=== PATIENT | male | born 1985 | race Caucasian/White ===

== ENCOUNTER 2020-10-22 09:50 | Outpatient (CLI) | payer SELFPAY ==
--- NOTE | 2020-10-22 19:10 | ONC CON_ITS ---
Dr. Xiong New Patient Note Patient: Joseph Morales Unit #: [id number]: 1985 Dicatated By: Yan Xiong M.D.Date of Visit: Oct 22, 2020 Onc MED New Patient/Consult Referring Physician: Dr. Bladimir Arnett M.D. Chief Complaint: Left axillary adenopathy. History of Present Illness: This is a 35-year-old man with history of stage IB melanoma of the left upper back. He is seen because of left axillary lymphadenopathy. He was diagnosed with superficial spreading melanoma of the left upper back by punch biopsy in April 2014. He underwent wide excision on 04/24/2014. Pathology showed malignant melanoma, Bruce level IV, with Brezlow depth 1.05 mm. There was no associated ulceration. The mitotic rate was 1.0/mm???. Angiolymphatic invasion was not identified. There was a brisk lymphocytic host response. The margins were free. It was pathologic stage 2a. He apparently was recommended to have lymph node sampling, which she declined. It sounds as though he may have had a staging PET/CT, that record is not available. In any case, he did not qualify for adjuvant therapy, and he was followed expectantly. On 10/12/2020 he was seen at Dr. Arnett's office with a 1-week history of an enlarged left axillary lymph node. He also complained of weakness/fatigue for 1 month. His blood pressure was elevated. His CBC showed elevated hemoglobin/hematocrit at 18.4 g and 53.2% with white blood cell count normal at 7500 and platelet count normal at 216,000. Sed rate was normal at 2 mm/h with C-reactive protein normal at 1.6 mg/L. Comprehensive metabolic profile was unrevealing. Renal function was normal with BUN 11 and creatinine 0.94 mg/dL. The bilirubin and liver enzymes were normal. He began treatment with lisinopril and prednisone. At his follow-up visit on 10/18/2010 there was no improvement in the adenopathy. He is seen now for further management. He complains that he still feels real weak some days. He still has normal activity, but he has to push himself. He has had pretty good appetite, but he has had a weight loss in the range of 20 pounds. He has not had fever. Couple weeks ago he was having cold sweats, but that has resolved. He has not had sore mouth or throat and he has not had difficulty swallowing. He has no shortness of breath, cough, or chest pain. He has had some heartburn at night. He was having loose stools for 1 to 2 weeks, but he has had mild constipation since he started the prednisone. He has no complaints. He says his hands sometimes ache and he has had some back pain. He does not complain of headache. He has had some dizziness with his blood pressure medication. He has had some numbness/tingling in his hands, which comes and goes. He has no other focal neurologic symptoms. Past Medical History: His medical history is significant for hypertension and a history of melanoma. Past Surgical History: He underewent wide excision of melanoma from the left upper back on 04/24/2014. His other surgical/procedural history includes open reduction for left clavicle fracture, right hand surgery for staff cellulitis, and a tendon repair on the left hand. Medications: Lisinopril (10 mg) Tablet Oral daily Allergies: No Known Allergies. Social History: Mr. Morales is . He has history of smoking 1 pack of cigarettes daily for 15 years. He drinks a sixpack of beer daily. Family History: Both parents are living and in good health. He has one half-brother who also is in good health. His grandmother had breast cancer and his grandfather had lung cancer. Review Of Symptoms: Constitutional - He has had some fatigue. He still has normal activity, but he has to push himself. He has pretty good appetite. His weight is down 20 pounds. He has not had fever. A couple of weeks ago he was having some cold sweats at night, but that resolved. ECOG score 0, Eyes - No change in vision, ENMT - No hearing loss or tinnitus. No sinus congestion/drainage. No mouth sores. No sore throat or difficulty swallowing, Hematologic/Lymphatic - No abnormal bruising or bleeding, Respiratory - No shortness of breath. No cough. No pleuritic pain or hemoptysis, Cardiovascular - No angina pain. No palpitations, Gastrointestinal - No nausea or vomiting. He sometimes has heartburn at night. He has been having loose stools for a week or 2, but he developed some constipation after he started taking prednisone. He has not been aware of any blood in the stool, Genitourinary (M) - No dysuria or hematuria. No urinary frequency. No urgency or incontinence, Musculoskeletal - He has a little aching in his hands and he has been having some back pain, Integumentary - He has had no new skin lesions, Neurologic - No headache. He has had some dizziness with his blood pressure. He has some numbness/tingling in his hands, but it comes and goes. No other focal neurologic symptoms, Psychiatric - No anxiety or depression. No insomnia. Vital Signs: Performed on Oct 22, 2020 11:35: 0, 3, 28.18, 2.02 sq.m, 69 in, 98 %, 65 /min, 18 /min, 135/80 mm(hg), 98.3 F (LOW), and 190.8 lbs (HIGH). Physical Examination: Constitutional - He appears to be in good general health, Eyes - Sclerae nonicteric. Conjunctivae clear, ENMT - No lesions noted in the oral cavity, Neck - No mass or thyromegaly, Hematologic/Lymphatic - No cervical or clavicular adenopathy. There has a palpable node in the left axilla which measures 2 to 3 cm, Respiratory - Lungs are clear with good air movement bilaterally, Cardiovascular - Heart rhythm is regular. There is no murmur, gallop, or rub noted, Abdomen - Soft and non-tender. Liver and spleen are not enlarged. There is no abdominal mass or ascites noted and there is no inguinal adenopathy, Back/Spine - No spine or CVA tenderness noted, Extremities - No edema, Integumentary - There is no evidence of local recurrence at the excision site in the left mid to upper back and there are no suspicious skin lesions noted. There is an obvious sebaceous cyst in the upper back, pretty much in the midline, Neurologic - No focal neurologic deficits noted. Problem List: 1. Malignant melanoma involving the left upper back, by clinical evaluation stage IB (pT2a, N0, M0). He underwent wide excision on 04/24/2014. He declined lymph node sampling. 2. New onset of left axillary lymphadenopathy, highly suspicious for recurrent melanoma. 3. Elevated hemoglobin/hematocrit. This is almost certainly some form of secondary polycythemia, most likely decreased plasma volume, i.e. stress erythrocytosis . Some component may be related to smoking, though by clinical evaluation he does not appear to any overt associated lung disease. 4. Hypertension. Problems Addressed with this Encounter and Plan: 1. Patient with malignant melanoma involving the left upper back, by clinical evaluation stage IB (pT2a, N0, M0). He underwent wide excision on 04/24/2014. He declined lymph node sampling. He has been followed expectantly. He presents now with new onset of left axillary lymphadenopathy. I discussed the fact that this is highly suspicious for recurrent melanoma, but that there are now treatments available which are potentially much more effective than what was available in 2014. First further evaluation, would first like to get a staging PET/CT, mainly to see if there are other obvious areas of involvement. Depending on the findings, we can then proceed with either an ultrasound directed needle biopsy or an excisional biopsy. His further treatment would obviously be dependent on the pathology findings. His management is going to be complicated by the fact that he is uninsured. I am hoping that we can get the PET/CT covered through our patient assistance fund. 2. He has mildly elevated hemoglobin/hematocrit levels. As noted, the probability is very high that this is some sort of secondary polycythemia. At least for the time being I will just be monitoring his blood counts. Signed By: Yan Xiong M.D. <<Signature on File>>
== END 2020-10-22 09:51 | disposition home or self-care (01) ==
LOC: ONCMED 09:57
PROVIDERS: PCP Family Medicine; Visit Provider Internal Medicine Medical Oncology
DX: C43.59 Malignant melanoma of other part of trunk (principal); C77.8 Secondary and unspecified malignant neoplasm of lymph nodes of multiple regions; D75.1 Secondary polycythemia; I10 Essential (primary) hypertension; Z79.899 Other long term (current) drug therapy
CPT/HCPCS: 99203

== ENCOUNTER → 2020-11-02 12:37 | Outpatient (BNVA) | payer OTHER, SELFPAY | PROVIDERS: PCP Family Medicine; Referring Provider Internal Medicine Medical Oncology; Visit Provider Surgery | DX: Z11.52 Encounter for screening for COVID-19 (principal); R59.1 Generalized enlarged lymph nodes; Z85.820 Personal history of malignant melanoma of skin; R59.0 Localized enlarged lymph nodes; C43.9 Malignant melanoma of skin, unspecified | CPT/HCPCS: 87635 ==

== ENCOUNTER 2020-11-08 05:40 | Day surgery (SDC) | payer SELFPAY ==
[2020-11-07 11:09] VITALS: BMI 27.8
--- NOTE | 2020-11-08 06:34 | ANES.PREANE2 ---
Pre-Anesthetic Assessment Pre-Anesthetic Assessment: Height/Weight: Height 1.75 m Weight 85.729 kg Preop Diagnosis: Left axillary lymphadenopathy Proposed Procedure: Operation Date: 11/08/20 07:00 Proposed Procedures p Left AXILLA LYMPH NODE BIOPSY 00216 Z85.820(Left) - Luke Bean MD Familial anesthetic complications: None Was Beta Isaiah taken within 24 hours: N/A Was Clonidine taken within 24 hours: N/A Last intake: Intake Last Liquid Date 11/07/20 Last Liquid Time 21:00 Last Solid Date 11/07/20 Last Solid Time 21:00 Social: Social History: Alcohol and Tobacco Comment: 3-6 beers a day Exam: Pre-Anes Outpt Exam: alert, oriented x 3, clear to auscultation bilaterally and regular rate & rhythm Airway: MP: 3 Dentition: Other (1 missing) CV/HEM: CV/HEM: HTN Anesthetic Plan: ASA status: 3 Anesthesia: MAC Risk of > 500 ml blood loss (7ml/kg in children): No PFSH Anesthesia PFSH: Medical History (Updated 11/02/20 @ 12:30 by Luke Bean MD) History of melanoma left side mid back Surgical History (Updated 11/02/20 @ 12:30 by Luke Bean MD) Hx of hand surgery right and left Hx of shoulder surgery Social History (Updated 11/02/20 @ 12:19 by Sarah Centeno LPN) Smoking and tobacco status: current every day smoker (1pk per day) cigarettes Packs smoked per day: 1 Alcohol intake: current Alcohol intake frequency: 3 or more drinks per day Alcohol type: beer Data Anesthesia Cardiac Studies: No Data to Display
[2020-11-08 06:39] VITALS: BP 135/90; PULSE 74; RESP 18; TEMP 36.8; O2SAT 98
[2020-11-08] MEDS: sodium chloride 0.9% 1,000 ML 30 ML IV (06:45)
--- NOTE | 2020-11-08 06:50 | W.PM.OPSUD ---
Surgery/Procedure H&P Update DATE OF PROCEDURE: November 08, 2020 DATE H&P PERFORMED: 11/02/20 H&P UPDATE INFORMATION: I have reviewed H&P completed within last 30 days, I have examined patient prior to procedure and No changes to prior documentation PREOP DIAGNOSIS: Left axillary lymphadenopathy PLANNED PROCEDURE: Operation Date: 11/08/20 07:00 Proposed Procedures p Left AXILLA LYMPH NODE BIOPSY 78958 Z85.820(Left) - Luke Bean MD
[2020-11-08] MEDS: lidocaine 1% INJ 20 mL 15 ML SUBCUT (07:38)
[2020-11-08 07:43] VITALS: BP 147/57; PULSE 68; RESP 13; TEMP 36.1; O2SAT 96
--- NOTE | 2020-11-08 07:47 | PM.OP ---
Operative Report Date of procedure: November 08, 2020 Pre-op Diagnosis: 1. History of melanoma on the back status post excision many years ago 2. Enlarged left axilla lymph node Post-op diagnosis: same Procedure Done: Left axillary lymph node biopsy Specimens removed/disposition: Lymph node left axilla Surgeon: Luke Bean Anesthesia: MAC Condition: stable Disposition: PACU Procedure: The patient was taken the operating room and placed under MAC after IV antibiotic had been administered. The left axilla was prepped and draped in sterile manner. 1% lidocaine with 0.5% Marcaine was infiltrated around the palpable left axillary lymph node. Using a 15 blade a 4 cm incision was made, subcutaneous tissue and clavipectoral fascia was divided using electrocautery and the palpable lymph node was identified and dissected free from the surrounding subcutaneous tissue. The vascular pedicle was suture ligated with 3-0 Vicryl suture and the specimen was sent in saline for lymph node prep. The wound was irrigated saline, hemostasis ensured, subcutaneous tissues approximated using interrupted 3-0 Vicryl suture and skin was closed using running subcuticular 4-0 Monocryl suture and surgical glue. The patient was transferred to recovery room in stable condition.
[2020-11-08 07:50] VITALS: BP 148/58; PULSE 65; RESP 19; O2SAT 97
[2020-11-08 07:55] VITALS: BP 189/85; PULSE 70; RESP 17; O2SAT 96
[2020-11-08 08:00] VITALS: BP 188/81; PULSE 65; RESP 13; TEMP 36.4; O2SAT 96
[2020-11-08] MEDS: HYDROcodone-acetaminophen 5-325 mg Tablet 1 TAB PO (08:38)
[2020-11-08 08:45] VITALS: BP 141/87; PULSE 66; RESP 18; TEMP 36.6; O2SAT 96
--- NOTE | 2020-11-08 15:14 | ANE.PACU2 ---
Inpatient post-anesthesia follow up: Airway intact: Yes Vital signs: Temperature 97.9 F Pulse Rate 66 Respiratory Rate 18 Blood Pressure 141/87 Pulse Oximetry 96 Oxygen Delivery Me thod Room Air Oxygen Flow Rate 8 Fraction of Inspir ed Oxygen Hydration adequate: Yes Nausea and vomiting: No Pain level: 3 Mental status: Baseline
[2020-11-12 05:47] LABS: Miscellaneous Test See Scanned Lab Rpt
[2020-11-14 05:41] LABS: Miscellaneous Test See Scanned Lab Rpt
== END 2020-11-08 08:50 | disposition home or self-care (01) ==
PROVIDERS: PCP Family Medicine; Visit Provider Surgery
PROC: (CPT 38500; principal; 2020-11-08 07:00)
DX: R59.9 Enlarged lymph nodes, unspecified (principal); Z85.820 Personal history of malignant melanoma of skin; I10 Essential (primary) hypertension; F17.210 Nicotine dependence, cigarettes, uncomplicated
CPT/HCPCS: 38500; 81210; 87015; 87102; 87116; 87206; 87801; 88184; 88185; 88305; 88381; 96365; J0690; J2250; J2704; J3010; J3490; J7030

== ENCOUNTER 2020-12-03 08:14 | Outpatient (CLI) | payer SELFPAY ==
--- NOTE | 2020-12-03 08:47 | MR_ITS ---
WS: [id number] MRI HEAD WITH CONTRAST TECHNIQUE: Sagittal T1, T2 axial, T2 axial FLAIR, axial susceptibility weighted imaging, axial diffus ion weighted images, and coronal T2 images were obtained. Pre and post-T1 axial and post T1 coronal i mages. ADC and FSPGR images. CLINICAL INFORMATION: METASTATIC MELANOMA COMPARISON: None. FINDINGS: No evidence of restricted diffusion to suggest acute ischemia. Ventricular system and basal cisterns are patent. Normal granger-white differentiation. Normal posterior fossa. Normal vascular flow voids at the skull base. No extra-axial fluid collections. No evidence of mass or mass effect. Mild mucosal th ickening in the paranasal sinuses. Mastoid air cells are well aerated. No hemosiderin on susceptibly weighted images. Normal optic chiasm and pituitary infundibulum. Normal cavernous sinuses and Meckel's cave. Temporal lobes and hippocampal formations are normal in appearance. No abnormal gadolinium enhancement. No mary ann dence of enhancing intracranial metastatic disease. Normal dural venous sinuses. MR/MR head wo/w con [id number] IMPRESSION: 1. No evidence of restricted diffusion to suggest acute ischemia. 2. No suspicious intracranial signal abnormalities. Normal granger-white differen tiation. 3. No evidence of enhancing intracranial metastatic disease. 4. No hemosiderin on the susceptibly weighted images. 5. No other significant findings.
[2020-12-03] MEDS: gadobenate dimeglumine 20 mL vial IV (09:26)
== END 2020-12-03 08:15 | disposition home or self-care (01) ==
PROVIDERS: PCP Family Medicine; Visit Provider Internal Medicine Medical Oncology
DX: C43.59 Malignant melanoma of other part of trunk (principal)
CPT/HCPCS: 70553; A9577

== ENCOUNTER 2020-12-10 13:20 | Outpatient (CLI) | payer SELFPAY ==
[2020-12-10 13:54] LABS: Basophils # 0.1 10^3/uL (0.0-0.1); Basophils % 0.7 %; Eosinophils # 0.2 10^3/uL (0.0-0.8); Eosinophils % 2.6 %; Hematocrit 50.5 % (42.0-52.0); Hemoglobin 17.3 g/dL (11.7-16.6); Lymphocytes # 2.4 10^3/uL (0.8-4.8); Lymphocytes % 34.5 %; Mean Corpuscular HGB Conc 34.3 g/dL (30.0-36.0); Mean Corpuscular Hemoglobin 30.8 pg (28.0-34.0); Mean Platelet Volume 12.1 fL (7.4-10.4); Monocytes # 0.5 10^3/uL (0.2-0.9); Monocytes % 7.3 %; Neutrophils # 3.82 10^3/uL (1.8-7.7); Neutrophils % 54.5 %; Nucleated Red Blood Cells % 0 %; Platelet Count 213 10^3/cmm (130-400); Red Blood Count 5.61 10^6/uL (4.1-5.3); Red Cell Distribution Width 12.8 % (12.1-15.1)
[2020-12-10 14:25] LABS: Alanine Aminotransferase 25 U/L (0-41); Albumin Level 4.5 g/dL (3.5-5.2); Alkaline Phosphatase 79 IU/L (40-130); Anion Gap 14.3 (5-19); Aspartate Amino Transferase 18 U/L (0-40); Blood Urea Nitrogen 12 mg/dL (6-20); Calcium 9.4 mg/dL (8.5-10.5); Carbon Dioxide 26 mmol/L (22-29); Chloride 104 mmol/L (98-107); Globulin 2.4 g/dL (1.3-4.6); Glomerular Filtration Rate 127.6 mL/min (90-130); Glucose 93 mg/dL (65-115); Osmolality Calculated 289 mOsm/kg (285-295); Potassium 4.3 mmol/L (3.5-5.1); Sodium 140 mmol/L (136-145); Thyroid Stimulating Hormone 1.03 uIU/mL (0.27-4.20); Total Bilirubin 0.4 mg/dL (0.15-1.2); Total Protein 6.9 g/dL (6.6-8.7)
== END 2020-12-10 13:21 | disposition home or self-care (01) ==
LOC: ONCMED 13:23
PROVIDERS: PCP Family Medicine; Visit Provider Internal Medicine Medical Oncology
DX: C43.59 Malignant melanoma of other part of trunk (principal); R59.0 Localized enlarged lymph nodes; E03.9 Hypothyroidism, unspecified
CPT/HCPCS: 36415; 80053; 84443; 85025

== ENCOUNTER 2020-12-11 06:06 | Outpatient (CLI) | payer SELFPAY ==
[2020-12-11] MEDS: sodium chloride 0.9% 250 ML 75 ML IV (09:42)
--- NOTE | 2020-12-11 18:03 | ONC FU_ITS ---
Dr. Xiong Patient Follow-Up Note Patient: Joseph Morales Unit #: [id number]: 1985 Dicatated By: Yan Xiong M.D.Date of Visit:Dec 11, 2020 Onc Med Follow-up/Prog Note Chief Complaint: Metastatic melanoma. History of Present Illness: This is a 35-year-old man with a history of stage IB melanoma of the left upper back. He now has biopsy-proven recurrence with metastatic involvement in the left axillary lymph node. 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 He was diagnosed with superficial spreading melanoma of the left upper back by punch biopsy in April 2014. He underwent wide excision on 04/24/2014. Pathology showed malignant melanoma, Bruce level IV, with Brezlow depth 1.05 mm. There was no associated ulceration. The mitotic rate was 1.0/mm???. Angiolymphatic invasion was not identified. There was a brisk lymphocytic host response. The margins were free. It was pathologic stage 2a. He apparently was recommended to have lymph node sampling, which she declined. It sounds as though he may have had a staging PET/CT, that record is not available. In any case, he did not qualify for adjuvant therapy, and he was followed expectantly. On 10/12/2020 he was seen at Dr. Arnett's office with a 1-week history of an enlarged left axillary lymph node. He also complained of weakness/fatigue for 1 month. His blood pressure was elevated. His CBC showed elevated hemoglobin/hematocrit at 18.4 g and 53.2% with white blood cell count normal at 7500 and platelet count normal at 216,000. Sed rate was normal at 2 mm/h with C-reactive protein normal at 1.6 mg/L. Comprehensive metabolic profile was unrevealing. Renal function was normal with BUN 11 and creatinine 0.94 mg/dL. The bilirubin and liver enzymes were normal. He began treatment with lisinopril and prednisone. At his follow-up visit on 10/18/2010 there was no improvement in the adenopathy. I had seen him initially on 10/22/2020. He had palpable left axillary lymph node which measures 2 to 3 cm. I did not feel any other adenopathy. Staging PET/CT on 10/27/2020 showed an FDG avid 3.4 x 2.1 cm left axillary mass with SUV 14.4, high probability of representing recurrent melanoma. There were no other areas of abnormal uptake on that study. Other scattered axillary nodes were radiographically benign and FDG negative. With that finding he underwent left axillary lymph node biopsy on 11/08/2020. Pathology showed metastatic melanoma measuring 1.6 cm. There was evidence for extracapsular extension. 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 His staging head MRI on 12/03/2020 showed no evidence of metastatic involvement. He is being seen now in regard to adjuvant therapy. His medical history is otherwise significant for hypertension and for mildly elevated hemoglobin/hematocrit levels. He has a history of smoking 1 pack of cigarettes daily for 15 years. He has had moderate alcohol use, reported at a 6-pack of beer daily. He has been feeling pretty good generally, though he says his energy is not super high. He still has normal activity. ECOG score is 0. He has good appetite. He has no fever or night sweats. He has no shortness of breath, cough, or chest pain. He has no GI/ complaints other than occasional heartburn. He has some joint pain, mainly in his hands. He has had some headaches following his staging head MRI, but does appear to be resolving. He has some numbness/tingling in his hands. Medications: Lisinopril (10 mg) Tablet Oral daily Allergies: No Known Allergies. Vital Signs: Performed on Dec 11, 2020 09:23 Height - 69.00 in Weight - 193 lbs (HIGH) BSA - 2.03 sq.m BMI - 28.50 Temperature - 98.7 F Pulse - 77 /min Respiration - 18 /min BP - 130/79 mm(hg) O2 Sat - 98 % Pain - 0 Fatigue - 2 Physical Examination: Constitutional - He looks good generally, Eyes - Sclerae nonicteric. Conjunctivae clear, ENMT - No lesions noted in the oral cavity, Hematologic/Lymphatic - No cervical or clavicular adenopathy. The left axillary incision appears well-healed. There is no axillary adenopathy noted, Respiratory - Lungs are clear with good air movement bilaterally, Cardiovascular - Heart rhythm is regular. There is no murmur, gallop, or rub noted, Abdomen - Soft. Liver and spleen are not enlarged. There is no abdominal mass or ascites noted and there is no inguinal adenopathy, Extremities - No edema, Integumentary - There is no evidence of local recurrence at the excision site in the left mid to upper back and there are no suspicious skin lesions noted. There is a sebaceous cyst in the upper back, measuring about 2 cm, Neurologic - No focal neurologic deficits noted. Lab/Imaging: CBC shows hemoglobin 17.3 g with hematocrit 50.5%, white blood cell count 7000, and platelet count 213,000. Comprehensive metabolic profile is unremarkable. His baseline TSH is normal. Problem List: 1. Malignant melanoma involving the left upper back, by clinical evaluation stage IB (pT2a, N0, M0). He underwent wide excision on 04/24/2014. He declined lymph node sampling. 2. New onset of left axillary lymphadenopathy, highly suspicious for recurrent melanoma. 3. Elevated hemoglobin/hematocrit. This is almost certainly some form of secondary polycythemia, most likely decreased plasma volume, i.e. stress erythrocytosis . Some component may be related to smoking, though by clinical evaluation he does not appear to any overt associated lung disease. 4. Hypertension. Problems Addressed with this Encounter and Plan: 1. Patient with malignant melanoma involving the left upper back, by clinical evaluation stage IB (pT2a, N0, M0) at initial diagnosis. He underwent wide excision on 04/24/2014. He declined lymph node sampling. He was followed expectantly. In October 2020 he presented with new onset of left axillary lymphadenopathy. Staging PET/CT on 10/27/2020 showed an FDG avid 3.4 x 2.1 cm left axillary mass with SUV 14.4, high probability of representing recurrent melanoma. There were no other areas of abnormal uptake on that study. Other scattered axillary nodes were radiographically benign and FDG negative. With that finding he underwent left axillary lymph node biopsy on 11/08/2020. Pathology showed metastatic melanoma measuring 1.6 cm. There was evidence for extracapsular extension. 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 In the setting of pathologically confirmed axillary lymph node recurrence which has been completely resected, he will now begin a course of adjuvant immunotherapy with nivolumab, 480 mg by IV infusion every 4 weeks for 1 year. I reviewed potential side effects which may include enteritis/colitis, pneumonitis, endocrinopathies, skin eruption, musculoskeletal pain, and renal or hepatic dysfunction, among others. He will begin his first cycle today. He will be scheduled for a follow-up visit in 1 month. 2. He has mildly elevated hemoglobin/hematocrit levels. As noted, the probability is very high that this is some sort of secondary polycythemia. I will continue to monitor blood counts and he will have further evaluation as indicated. Signed By: Yan Xiong M.D. <<Signature on File>>
== END 2020-12-11 06:07 | disposition home or self-care (01) ==
PROVIDERS: PCP Family Medicine; Visit Provider Internal Medicine Medical Oncology
DX: Z51.12 Encounter for antineoplastic immunotherapy (principal); C43.59 Malignant melanoma of other part of trunk; C77.3 Secondary and unspecified malignant neoplasm of axilla and upper limb lymph nodes; D75.1 Secondary polycythemia; I10 Essential (primary) hypertension; Z79.899 Other long term (current) drug therapy
CPT/HCPCS: 96413; 99214; J7050; J9299

== ENCOUNTER 2021-01-08 07:10 | Outpatient (CLI) | payer SELFPAY ==
[2021-01-08 08:01] LABS: Basophils # 0.1 10^3/uL (0.0-0.1); Basophils % 0.8 %; Eosinophils # 0.3 10^3/uL (0.0-0.8); Eosinophils % 3.6 %; Hematocrit 52.9 % (42.0-52.0); Hemoglobin 18.7 g/dL (11.7-16.6); Lymphocytes # 2.1 10^3/uL (0.8-4.8); Lymphocytes % 27.3 %; Mean Corpuscular HGB Conc 35.3 g/dL (30.0-36.0); Mean Corpuscular Volume 87.6 fl (80-94); Mean Platelet Volume 11.5 fL (7.4-10.4); Monocytes # 0.7 10^3/uL (0.2-0.9); Monocytes % 8.7 %; Neutrophils # 4.59 10^3/uL (1.8-7.7); Neutrophils % 59.2 %; Nucleated Red Blood Cells % 0 %; Platelet Count 213 10^3/cmm (130-400); Red Blood Count 6.04 10^6/uL (4.1-5.3); Red Cell Distribution Width 12.5 % (12.1-15.1); White Blood Count 7.7 10^3/uL (4.0-10.0)
[2021-01-08 08:36] LABS: Alanine Aminotransferase 27 U/L (0-41); Albumin Level 4.6 g/dL (3.5-5.2); Alkaline Phosphatase 81 IU/L (40-130); Anion Gap 16.3 (5-19); Aspartate Amino Transferase 20 U/L (0-40); Blood Urea Nitrogen 14 mg/dL (6-20); Calcium 9.5 mg/dL (8.5-10.5); Carbon Dioxide 24 mmol/L (22-29); Chloride 100 mmol/L (98-107); Globulin 2.7 g/dL (1.3-4.6); Glomerular Filtration Rate 127.6 mL/min (90-130); Glucose 107 mg/dL (65-115); Osmolality Calculated 283 mOsm/kg (285-295); Potassium 4.3 mmol/L (3.5-5.1); Sodium 136 mmol/L (136-145); Thyroid Stimulating Hormone 1.03 uIU/mL (0.27-4.20); Total Bilirubin 0.5 mg/dL (0.15-1.2); Total Protein 7.3 g/dL (6.6-8.7)
--- NOTE | 2021-01-08 09:14 | ONC FU_ITS ---
Dr. Xiong Patient Follow-Up Note Patient: Joseph Morales Unit #: [id number]: 1985 Dicatated By: Yan Xiong M.D.Date of Visit:Jan 08, 2021 Onc Med Follow-up/Prog Note Chief Complaint: Metastatic melanoma. History of Present Illness: This is a 35-year-old man with a history of stage IB melanoma of the left upper back. He now has biopsy-proven recurrence with metastatic involvement in the left axillary lymph node. 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 He was diagnosed with superficial spreading melanoma of the left upper back by punch biopsy in April 2014. He underwent wide excision on 04/24/2014. Pathology showed malignant melanoma, Bruce level IV, with Brezlow depth 1.05 mm. There was no associated ulceration. The mitotic rate was 1.0/mm???. Angiolymphatic invasion was not identified. There was a brisk lymphocytic host response. The margins were free. It was pathologic stage 2a. He apparently was recommended to have lymph node sampling, which she declined. It sounds as though he may have had a staging PET/CT, that record is not available. In any case, he did not qualify for adjuvant therapy, and he was followed expectantly. On 10/12/2020 he was seen at Dr. Arnett's office with a 1-week history of an enlarged left axillary lymph node. He also complained of weakness/fatigue for 1 month. His blood pressure was elevated. His CBC showed elevated hemoglobin/hematocrit at 18.4 g and 53.2% with white blood cell count normal at 7500 and platelet count normal at 216,000. Sed rate was normal at 2 mm/h with C-reactive protein normal at 1.6 mg/L. Comprehensive metabolic profile was unrevealing. Renal function was normal with BUN 11 and creatinine 0.94 mg/dL. The bilirubin and liver enzymes were normal. He began treatment with lisinopril and prednisone. At his follow-up visit on 10/18/2010 there was no improvement in the adenopathy. I had seen him initially on 10/22/2020. He had palpable left axillary lymph node which measures 2 to 3 cm. I did not feel any other adenopathy. Staging PET/CT on 10/27/2020 showed an FDG avid 3.4 x 2.1 cm left axillary mass with SUV 14.4, high probability of representing recurrent melanoma. There were no other areas of abnormal uptake on that study. Other scattered axillary nodes were radiographically benign and FDG negative. With that finding he underwent left axillary lymph node biopsy on 11/08/2020. Pathology showed metastatic melanoma measuring 1.6 cm. There was evidence for extracapsular extension. 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 His staging head MRI on 12/03/2020 showed no evidence of metastatic involvement. With those findings he was recommended to undergo adjuvant immunotherapy with nivolumab for 12 months. His medical history is otherwise significant for hypertension and for mildly elevated hemoglobin/hematocrit levels. He has a history of smoking 1 pack of cigarettes daily for 15 years. He has had moderate alcohol use, reported at a 6-pack of beer daily. INTERIM HISTORY: He began cycle 1 of nivolumab 480 mg by IV infusion on 12/11/2020. He had increased fatigue for 3 to 4 days after that treatment. He had no other significant toxicity. Since then he has been able to continue working any has continued his normal activity, though at times he does have to push himself. He has good appetite. He has not had fever. He had some chills/sweating for the first night after his treatment, but none since then. He has had some allergy related sinus symptoms this past week. He has had no mouth sores or sore throat. He has not had cough, shortness of breath, or chest pain. He has heartburn occasionally, adequately managed with [id number] medication. He has no other GI or complaints. He has a little soreness in his joints. He does not complain of headache or dizziness. He has no numbness/paresthesia or other focal neurologic symptoms. He has noticed that he has been bruising a little more easily. Medications: Lisinopril (10 mg) Tablet Oral daily Allergies: No Known Allergies. Vital Signs: Performed on Jan 08, 2021 08:49 Height - 69.00 in Weight - 192.8 lbs (LOW) BSA - 2.03 sq.m BMI - 28.47 Temperature - 98.1 F (LOW) Pulse - 75 /min Respiration - 18 /min BP - 149/91 mm(hg) (HIGH) O2 Sat - 99 % Pain - 0 Fatigue - 0 Physical Examination: Constitutional - He looks good generally, Eyes - Sclerae nonicteric. Conjunctivae clear, ENMT - No lesions noted in the oral cavity, Hematologic/Lymphatic - No cervical, clavicular, or axillary adenopathy, Respiratory - Lungs are clear with good air movement bilaterally, Cardiovascular - Heart rhythm is regular. There is no murmur, gallop, or rub noted, Abdomen - Soft. Liver and spleen are not enlarged. There is no abdominal mass or ascites noted and there is no inguinal adenopathy, Extremities - No edema, Integumentary - There is a small, cyst-like erythematous lesion just inferior to the left axillary incision, Neurologic - No focal neurologic deficits noted. Lab/Imaging: CBC shows hemoglobin 18.7 g with hematocrit 52.9%, white blood cell count 7700, and platelet count 213,000. Comprehensive metabolic profile is unremarkable. TSH is normal at 1.03 ???IU/mL. Problem List: 1. Malignant melanoma involving the left upper back, by clinical evaluation stage IB (pT2a, N0, M0). He underwent wide excision on 04/24/2014. He declined lymph node sampling. 2. New onset of left axillary lymphadenopathy, highly suspicious for recurrent melanoma. 3. Elevated hemoglobin/hematocrit. This is almost certainly some form of secondary polycythemia, most likely decreased plasma volume, i.e. stress erythrocytosis . Some component may be related to smoking, though by clinical evaluation he does not appear to any overt associated lung disease. 4. Hypertension. Problems Addressed with this Encounter and Plan: 1. Patient with malignant melanoma involving the left upper back, by clinical evaluation stage IB (pT2a, N0, M0) at initial diagnosis. He underwent wide excision on 04/24/2014. He declined lymph node sampling. He was followed expectantly. In October 2020 he presented with new onset of left axillary lymphadenopathy. Staging PET/CT on 10/27/2020 showed an FDG avid 3.4 x 2.1 cm left axillary mass with SUV 14.4, high probability of representing recurrent melanoma. There were no other areas of abnormal uptake on that study. Other scattered axillary nodes were radiographically benign and FDG negative. With that finding he underwent left axillary lymph node biopsy on 11/08/2020. Pathology showed metastatic melanoma measuring 1.6 cm. There was evidence for extracapsular extension. 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 In the setting of pathologically confirmed axillary lymph node recurrence which has been completely resected, he was recommended to undergo adjuvant immunotherapy with nivolumab of 12 months. He began cycle 1 of nivolumab on 12/11/2020. He had mild fatigue for 3 to 4 days afterwards. Thus far he appears to be experiencing no other toxicities. He will proceed with cycle 2 of nivolumab 480 mg by IV infusion. He returns in 4 weeks. 2. He has mildly elevated hemoglobin/hematocrit levels, most likely due to decreased plasma volume or some other form of secondary polycythemia. His blood counts will be monitored monthly and he will have further evaluation as indicated. Signed By: Yan Xiong M.D. <<Signature on File>>
== END 2021-01-08 07:11 | disposition home or self-care (01) ==
LOC: ONCMED 07:13
PROVIDERS: PCP Family Medicine; Visit Provider Internal Medicine Medical Oncology
DX: Z51.12 Encounter for antineoplastic immunotherapy (principal); C77.3 Secondary and unspecified malignant neoplasm of axilla and upper limb lymph nodes; Z85.820 Personal history of malignant melanoma of skin; Z79.899 Other long term (current) drug therapy
CPT/HCPCS: 80053; 84443; 85025; 96413; 99215; J7050; J9299

== ENCOUNTER 2021-02-05 07:59 | Outpatient (CLI) | payer SELFPAY ==
[2021-02-05 08:57] LABS: Basophils # 0.1 10^3/uL (0.0-0.1); Basophils % 0.8 %; Eosinophils # 0.3 10^3/uL (0.0-0.8); Eosinophils % 3.9 %; Hematocrit 52.9 % (42.0-52.0); Hemoglobin 18.1 g/dL (11.7-16.6); Lymphocytes % 28.3 %; Mean Corpuscular HGB Conc 34.2 g/dL (30.0-36.0); Mean Corpuscular Hemoglobin 31.3 pg (28.0-34.0); Mean Corpuscular Volume 91.5 fl (80-94); Monocytes # 0.6 10^3/uL (0.2-0.9); Monocytes % 7.9 %; Neutrophils # 4.21 10^3/uL (1.8-7.7); Neutrophils % 58.5 %; Nucleated Red Blood Cells % 0 %; Platelet Count 200 10^3/cmm (130-400); Red Blood Count 5.78 10^6/uL (4.1-5.3); Red Cell Distribution Width 12.9 % (12.1-15.1); White Blood Count 7.2 10^3/uL (4.0-10.0)
[2021-02-05 09:38] LABS: Alanine Aminotransferase 27 U/L (0-41); Albumin Level 4.2 g/dL (3.5-5.2); Alkaline Phosphatase 68 IU/L (40-130); Anion Gap 17.1 (5-19); Aspartate Amino Transferase 19 U/L (0-40); Blood Urea Nitrogen 12 mg/dL (6-20); Calcium 9.1 mg/dL (8.5-10.5); Carbon Dioxide 21 mmol/L (22-29); Chloride 101 mmol/L (98-107); Globulin 2.8 g/dL (1.3-4.6); Glomerular Filtration Rate 187.1 mL/min (90-130); Glucose 99 mg/dL (65-115); Lactate Dehydrogenase 170 U/L (135-225); Osmolality Calculated 280 mOsm/kg (285-295); Potassium 4.1 mmol/L (3.5-5.1); Sodium 135 mmol/L (136-145); Thyroid Stimulating Hormone 0.59 uIU/mL (0.27-4.20); Total Bilirubin 0.4 mg/dL (0.15-1.2)
--- NOTE | 2021-02-05 18:34 | ONC FU_ITS ---
Dr. Xiong Patient Follow-Up Note Patient: Joseph Morales Unit #: [id number]: 1985 Dicatated By: Yan Xiong M.D.Date of Visit:Feb 05, 2021 Onc Med Follow-up/Prog Note Chief Complaint: Metastatic melanoma. 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 He now has biopsy-proven recurrence with metastatic involvement in the left axillary lymph node. 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 He was diagnosed with superficial spreading melanoma of the left upper back by punch biopsy in April 2014. He underwent wide excision on 04/24/2014. Pathology showed malignant melanoma, Bruce level IV, with Brezlow depth 1.05 mm. There was no associated ulceration. The mitotic rate was 1.0/mm???. Angiolymphatic invasion was not identified. There was a brisk lymphocytic host response. The margins were free. It was pathologic stage 2a. He apparently was recommended to have lymph node sampling, which she declined. It sounds as though he may have had a staging PET/CT, that record is not available. In any case, he did not qualify for adjuvant therapy, and he was followed expectantly. On 10/12/2020 he was seen at Dr. Arnett's office with a 1-week history of an enlarged left axillary lymph node. He also complained of weakness/fatigue for 1 month. His blood pressure was elevated. His CBC showed elevated hemoglobin/hematocrit at 18.4 g and 53.2% with white blood cell count normal at 7500 and platelet count normal at 216,000. Sed rate was normal at 2 mm/h with C-reactive protein normal at 1.6 mg/L. Comprehensive metabolic profile was unrevealing. Renal function was normal with BUN 11 and creatinine 0.94 mg/dL. The bilirubin and liver enzymes were normal. He began treatment with lisinopril and prednisone. At his follow-up visit on 10/18/2010 there was no improvement in the adenopathy. I had seen him initially on 10/22/2020. He had palpable left axillary lymph node which measures 2 to 3 cm. I did not feel any other adenopathy. Staging PET/CT on 10/27/2020 showed an FDG avid 3.4 x 2.1 cm left axillary mass with SUV 14.4, high probability of representing recurrent melanoma. There were no other areas of abnormal uptake on that study. Other scattered axillary nodes were radiographically benign and FDG negative. With that finding he underwent left axillary lymph node biopsy on 11/08/2020. Pathology showed metastatic melanoma measuring 1.6 cm. There was evidence for extracapsular extension. 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 His staging head MRI on 12/03/2020 showed no evidence of metastatic involvement. With those findings he was recommended to undergo adjuvant immunotherapy with nivolumab for 12 months. His medical history is otherwise significant for hypertension and for mildly elevated hemoglobin/hematocrit levels. He has a history of smoking 1 pack of cigarettes daily for 15 years. He has had moderate alcohol use, reported at a 6-pack of beer daily. INTERIM HISTORY: He began cycle 1 of nivolumab 480 mg by IV infusion on 12/11/2020. He had increased fatigue for 3 to 4 days after that treatment. He had no other significant toxicity. He continued with cycle 2 on 01/08/2021. He is seen for a scheduled visit. He again felt tired for 3-5 days after his treatment. He was occasionally wore out to the point that he couldn't work. He also complains that heat tends to bother him. His ECOG score is 1. His appetite is decent. He has no fever or night sweats. He has no shortness of breath, cough, or chest pain. He has no GI or complaints. He has been having joint pain, especially his hands and knees. He has been having some discomfort in the lateral left chest area. He does not have headache or dizziness, and he has no focal neurologic symptoms. Medications: Lisinopril (10 mg) Tablet Oral daily, Meloxicam 1 Tablet (of 15 mg) Oral daily Allergies: No Known Allergies. Vital Signs: Performed on Feb 05, 2021 09:54 Height - 69.00 in Weight - 195.6 lbs (HIGH) BSA - 2.05 sq.m BMI - 28.89 Temperature - 98.4 F Pulse - 79 /min Respiration - 18 /min BP - 152/100 mm(hg) (HIGH) O2 Sat - 98 % Pain - 0 Fatigue - 0 Physical Examination: Constitutional - He looks good generally, Eyes - Sclerae nonicteric. Conjunctivae clear, ENMT - No lesions noted in the oral cavity, Hematologic/Lymphatic - No cervical, clavicular, or axillary adenopathy, Respiratory - Lungs are clear with good air movement bilaterally, Cardiovascular - Heart rhythm is regular. There is no murmur, gallop, or rub noted, Chest - There is mild tenderness in the left lateral chest wall extending up into the left axillary area. There is no mass palpable, Abdomen - Soft. Liver and spleen are not enlarged. There is no abdominal mass or ascites noted and there is no inguinal adenopathy, Extremities - No edema, Neurologic - No focal neurologic deficits noted. Lab/Imaging: Test performed on Feb 05, 2021 08:15 LDH (Total) 170 U/L Sodium 135 mmol/L TSH 0.59 uIU/mL Potassium 4.1 mmol/L Chloride 101 mmol/L CO2 21 mmol/L Anion Gap 17.1 BUN 12 mg/dL Creatinine 0.5 mg/dL Cr Clearance (Est) 253.85 mL/min eGFR 187.1 mL/min Glucose 99 mg/dL Osmolality - Calculated 280 mOsm/kg Calcium 9.1 mg/dL Protein, Total 7.0 g/dL Albumin 4.2 g/dL Globulin 2.8 g/dL Bilirubin, Total 0.4 mg/dL ALT (SGPT) 27 U/L AST (SGOT) 19 U/L Alkaline Phosphatase 68 IU/L WBC 7.2 10 3/uL RBC 5.78 10 6/uL HGB 18.1 g/dL HCT 52.9 % MCV 91.5 fl MCH 31.3 pg MCHC 34.2 g/dL RDW 12.9 % Platelet Count 200 10 3/cmm MPV 12.0 fL Neutrophils 4.21 10 3/uL Lymphocytes 2.0 10 3/uL Monocytes 0.6 10 3/uL Eosinophils 0.3 10 3/uL Basophils 0.1 10 3/uL Neutrophil % 58.5 % Lymphocyte % 28.3 % Monocyte % 7.9 % Eosinophil % 3.9 % Basophils % 0.8 % NRBC % 0 % Problem List: 1. Malignant melanoma involving the left upper back, by clinical evaluation stage IB (pT2a, N0, M0). He underwent wide excision on 04/24/2014. He declined lymph node sampling. 2. New onset of left axillary lymphadenopathy, highly suspicious for recurrent melanoma. 3. Elevated hemoglobin/hematocrit. This is almost certainly some form of secondary polycythemia, most likely decreased plasma volume, i.e. stress erythrocytosis . Some component may be related to smoking, though by clinical evaluation he does not appear to any overt associated lung disease. 4. Hypertension. Problems Addressed with this Encounter and Plan: 1. Patient with malignant melanoma involving the left upper back, by clinical evaluation stage IB (pT2a, N0, M0) at initial diagnosis. He underwent wide excision on 04/24/2014. He declined lymph node sampling. He was followed expectantly. In October 2020 he presented with new onset of left axillary lymphadenopathy. Staging PET/CT on 10/27/2020 showed an FDG avid 3.4 x 2.1 cm left axillary mass with SUV 14.4, high probability of representing recurrent melanoma. There were no other areas of abnormal uptake on that study. Other scattered axillary nodes were radiographically benign and FDG negative. With that finding he underwent left axillary lymph node biopsy on 11/08/2020. Pathology showed metastatic melanoma measuring 1.6 cm. There was evidence for extracapsular extension. 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 In the setting of pathologically confirmed axillary lymph node recurrence which was completely resected, he was recommended to undergo adjuvant immunotherapy with nivolumab for 12 months. He began cycle 1 of nivolumab on 12/11/2020. He had mild fatigue for 3 to 4 days afterwards. He continued with cycle 2 on 01/08/2021, again complicated by fatigue. He also has been having mild joint pain. He has had no other significant toxicity. He will proceed with cycle 3 of nivolumab 480 mg by IV infusion. He returns in 4 weeks. In the meantime, he will be given a prescription for meloxicam 15 mg daily. 2. He has mildly elevated hemoglobin/hematocrit levels, most likely due to decreased plasma volume or some other form of secondary polycythemia. His blood counts are being monitored monthly. He will have further evaluation as indicated. Signed By: Yan Xiong M.D. <<Signature on File>>
== END 2021-02-05 08:00 | disposition home or self-care (01) ==
LOC: ONCMED 08:01
PROVIDERS: PCP Family Medicine; Visit Provider Internal Medicine Medical Oncology
DX: Z51.12 Encounter for antineoplastic immunotherapy (principal); C77.3 Secondary and unspecified malignant neoplasm of axilla and upper limb lymph nodes; D75.1 Secondary polycythemia; M25.50 Pain in unspecified joint; Z85.820 Personal history of malignant melanoma of skin; Z79.899 Other long term (current) drug therapy
CPT/HCPCS: 80053; 83615; 84443; 85025; 96413; 99215; J7050; J9299

== ENCOUNTER 2021-03-05 08:06 | Outpatient (CLI) | payer SELFPAY ==
[2021-03-05 08:46] LABS: Basophils # 0.1 10^3/uL (0.0-0.1); Basophils % 1.2 %; Eosinophils # 0.3 10^3/uL (0.0-0.8); Eosinophils % 4.3 %; Hematocrit 52.8 % (42.0-52.0); Hemoglobin 17.9 g/dL (11.7-16.6); Lymphocytes % 30.3 %; Mean Corpuscular HGB Conc 33.9 g/dL (30.0-36.0); Mean Corpuscular Hemoglobin 30.7 pg (28.0-34.0); Mean Corpuscular Volume 90.6 fl (80-94); Mean Platelet Volume 11.8 fL (7.4-10.4); Monocytes # 0.7 10^3/uL (0.2-0.9); Monocytes % 10.1 %; Neutrophils # 3.61 10^3/uL (1.8-7.7); Neutrophils % 53.7 %; Nucleated Red Blood Cells % 0 %; Platelet Count 208 10^3/cmm (130-400); Red Blood Count 5.83 10^6/uL (4.1-5.3); Red Cell Distribution Width 12.8 % (12.1-15.1); White Blood Count 6.7 10^3/uL (4.0-10.0)
[2021-03-05 09:16] LABS: Alanine Aminotransferase 27 U/L (0-41); Albumin Level 4.4 g/dL (3.5-5.2); Alkaline Phosphatase 74 IU/L (40-130); Anion Gap 14.3 (5-19); Aspartate Amino Transferase 20 U/L (0-40); Blood Urea Nitrogen 11 mg/dL (6-20); Calcium 8.9 mg/dL (8.5-10.5); Carbon Dioxide 26 mmol/L (22-29); Chloride 103 mmol/L (98-107); Globulin 2.4 g/dL (1.3-4.6); Glomerular Filtration Rate 151.6 mL/min (90-130); Glucose 99 mg/dL (65-115); Lactate Dehydrogenase 160 U/L (135-225); Osmolality Calculated 287 mOsm/kg (285-295); Potassium 4.3 mmol/L (3.5-5.1); Sodium 139 mmol/L (136-145); Total Bilirubin 0.4 mg/dL (0.15-1.2); Total Protein 6.8 g/dL (6.6-8.7)
--- NOTE | 2021-03-06 06:24 | ONC FU_ITS ---
Dr. Xiong Patient Follow-Up Note Patient: Joseph Morales Unit #: [id number]: 1985 Dicatated By: Yan Xiong M.D.Date of Visit:Mar 05, 2021 Onc Med Follow-up/Prog Note Chief Complaint: Metastatic melanoma. 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 He now has biopsy-proven recurrence with metastatic involvement in the left axillary lymph node. 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 He was diagnosed with superficial spreading melanoma of the left upper back by punch biopsy in April 2014. He underwent wide excision on 04/24/2014. Pathology showed malignant melanoma, Bruce level IV, with Brezlow depth 1.05 mm. There was no associated ulceration. The mitotic rate was 1.0/mm???. Angiolymphatic invasion was not identified. There was a brisk lymphocytic host response. The margins were free. It was pathologic stage 2a. He apparently was recommended to have lymph node sampling, which she declined. It sounds as though he may have had a staging PET/CT, that record is not available. In any case, he did not qualify for adjuvant therapy, and he was followed expectantly. On 10/12/2020 he was seen at Dr. Arnett's office with a 1-week history of an enlarged left axillary lymph node. He also complained of weakness/fatigue for 1 month. His blood pressure was elevated. His CBC showed elevated hemoglobin/hematocrit at 18.4 g and 53.2% with white blood cell count normal at 7500 and platelet count normal at 216,000. Sed rate was normal at 2 mm/h with C-reactive protein normal at 1.6 mg/L. Comprehensive metabolic profile was unrevealing. Renal function was normal with BUN 11 and creatinine 0.94 mg/dL. The bilirubin and liver enzymes were normal. He began treatment with lisinopril and prednisone. At his follow-up visit on 10/18/2010 there was no improvement in the adenopathy. I had seen him initially on 10/22/2020. He had palpable left axillary lymph node which measures 2 to 3 cm. I did not feel any other adenopathy. Staging PET/CT on 10/27/2020 showed an FDG avid 3.4 x 2.1 cm left axillary mass with SUV 14.4, high probability of representing recurrent melanoma. There were no other areas of abnormal uptake on that study. Other scattered axillary nodes were radiographically benign and FDG negative. With that finding he underwent left axillary lymph node biopsy on 11/08/2020. Pathology showed metastatic melanoma measuring 1.6 cm. There was evidence for extracapsular extension. 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 His staging head MRI on 12/03/2020 showed no evidence of metastatic involvement. With those findings he was recommended to undergo adjuvant immunotherapy with nivolumab for 12 months. His medical history is otherwise significant for hypertension and for mildly elevated hemoglobin/hematocrit levels. He has a history of smoking 1 pack of cigarettes daily for 15 years. He has had moderate alcohol use, reported at a 6-pack of beer daily. INTERIM HISTORY: He began cycle 1 of nivolumab 480 mg by IV infusion on 12/11/2020. He had increased fatigue for 3 to 4 days after that treatment. He had no other significant toxicity. He continued with cycle 2 on 01/08/2021 and with cycle 3 on 02/05/2021. He is seen for a scheduled visit. He has been feeling good generally. He still has some fatigue, his energy lately has been a little better. He has normal activity. ECOG score is 0. His appetite is good. He has no fever or night sweats. He does report having some sinus drainage, but he has not had sore mouth or throat. He has no shortness of breath, cough, or chest pain. He has no GI/ complaints other than occasional heartburn. His joint pain has improved with meloxicam. He does not complain of headache or dizziness. He does have some numbness in his hands, but it is intermittent. He has no other focal neurologic symptoms. Medications: Lisinopril (10 mg) Tablet Oral daily, Meloxicam 1 Tablet (of 15 mg) Oral daily Allergies: No Known Allergies. Vital Signs: Performed on Mar 05, 2021 09:51 Height - 69.00 in Weight - 197 lbs (HIGH) BSA - 2.05 sq.m BMI - 29.09 Temperature - 97.0 F (LOW) Pulse - 87 /min Respiration - 18 /min BP - 157/91 mm(hg) (HIGH) O2 Sat - 97 % Pain - 0 Fatigue - 2 Physical Examination: Constitutional - He looks good generally, Eyes - Sclerae nonicteric. Conjunctivae clear, ENMT - No lesions noted in the oral cavity, Hematologic/Lymphatic - No cervical, clavicular, or axillary adenopathy, Respiratory - Lungs are clear with good air movement bilaterally, Cardiovascular - Heart rhythm is regular. There is no murmur, gallop, or rub noted, Abdomen - Soft. Liver and spleen are not enlarged. There is no abdominal mass or ascites noted and there is no inguinal adenopathy, Extremities - No edema, Neurologic - No focal neurologic deficits noted. Lab/Imaging: Test performed on Mar 05, 2021 08:20 LDH (Total) 160 U/L Sodium 139 mmol/L TSH 0.60 uIU/mL Potassium 4.3 mmol/L Chloride 103 mmol/L CO2 26 mmol/L Anion Gap 14.3 BUN 11 mg/dL Creatinine 0.6 mg/dL Cr Clearance (Est) 213.06 mL/min eGFR 151.6 mL/min Glucose 99 mg/dL Osmolality - Calculated 287 mOsm/kg Calcium 8.9 mg/dL Protein, Total 6.8 g/dL Albumin 4.4 g/dL Globulin 2.4 g/dL Bilirubin, Total 0.4 mg/dL ALT (SGPT) 27 U/L AST (SGOT) 20 U/L Alkaline Phosphatase 74 IU/L WBC 6.7 10 3/uL RBC 5.83 10 6/uL HGB 17.9 g/dL HCT 52.8 % MCV 90.6 fl MCH 30.7 pg MCHC 33.9 g/dL RDW 12.8 % Platelet Count 208 10 3/cmm MPV 11.8 fL Neutrophils 3.61 10 3/uL Lymphocytes 2.0 10 3/uL Monocytes 0.7 10 3/uL Eosinophils 0.3 10 3/uL Basophils 0.1 10 3/uL Neutrophil % 53.7 % Lymphocyte % 30.3 % Monocyte % 10.1 % Eosinophil % 4.3 % Basophils % 1.2 % NRBC % 0 % Problem List: 1. Malignant melanoma involving the left upper back, by clinical evaluation stage IB (pT2a, N0, M0). He underwent wide excision on 04/24/2014. He declined lymph node sampling. 2. New onset of left axillary lymphadenopathy, highly suspicious for recurrent melanoma. 3. Elevated hemoglobin/hematocrit. This is almost certainly some form of secondary polycythemia, most likely decreased plasma volume, i.e. stress erythrocytosis . Some component may be related to smoking, though by clinical evaluation he does not appear to any overt associated lung disease. 4. Hypertension. Problems Addressed with this Encounter and Plan: 1. Patient with malignant melanoma involving the left upper back, by clinical evaluation stage IB (pT2a, N0, M0) at initial diagnosis. He underwent wide excision on 04/24/2014. He declined lymph node sampling. He was followed expectantly. In October 2020 he presented with new onset of left axillary lymphadenopathy. Staging PET/CT on 10/27/2020 showed an FDG avid 3.4 x 2.1 cm left axillary mass with SUV 14.4, high probability of representing recurrent melanoma. There were no other areas of abnormal uptake on that study. Other scattered axillary nodes were radiographically benign and FDG negative. With that finding he underwent left axillary lymph node biopsy on 11/08/2020. Pathology showed metastatic melanoma measuring 1.6 cm. There was evidence for extracapsular extension. 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 In the setting of pathologically confirmed axillary lymph node recurrence which was completely resected, he was recommended to undergo adjuvant immunotherapy with nivolumab for 12 months. He began cycle 1 of nivolumab on 12/11/2020. He had mild fatigue for 3 to 4 days afterwards. He continued with cycle 2 on 01/08/2021 and with cycle 3 on 02/05/2021. Overall he has been tolerating treatment well. Side effects have been limited to mild fatigue and joint pain. The latter has been managed adequately with meloxicam. He will proceed now with cycle 4 of nivolumab at 480 mg by IV infusion. He returns for treatment in 4 weeks and for a follow-up visit in 8 weeks. 2. He has mildly elevated hemoglobin/hematocrit levels, most likely due to decreased plasma volume or some other form of secondary polycythemia. His blood counts are being monitored monthly. He will have further evaluation as indicated. Signed By: Yan Xiong M.D. <<Signature on File>>
== END 2021-03-05 08:07 | disposition home or self-care (01) ==
PROVIDERS: PCP Family Medicine; Visit Provider Internal Medicine Medical Oncology
DX: Z51.12 Encounter for antineoplastic immunotherapy (principal); Z51.11 Encounter for antineoplastic chemotherapy; C43.59 Malignant melanoma of other part of trunk; C77.3 Secondary and unspecified malignant neoplasm of axilla and upper limb lymph nodes; D75.1 Secondary polycythemia; I10 Essential (primary) hypertension; Z79.899 Other long term (current) drug therapy
CPT/HCPCS: 80053; 83615; 84443; 85025; 96413; 99215; J7050; J9299

== ENCOUNTER 2021-04-02 11:23 | Outpatient (CLI) | payer SELFPAY | END 2021-04-02 11:24 | disposition home or self-care (01) | LOC: ONCMED 11:26 | PROVIDERS: PCP Family Medicine; Visit Provider Internal Medicine Medical Oncology | DX: Z51.12 Encounter for antineoplastic immunotherapy (principal); C43.59 Malignant melanoma of other part of trunk; R59.0 Localized enlarged lymph nodes; Z79.899 Other long term (current) drug therapy | CPT/HCPCS: 96413; J7050; J9299 ==

== ENCOUNTER 2021-04-30 10:03 | Outpatient (CLI) | payer SELFPAY ==
[2021-04-30 10:43] LABS: Basophils # 0.1 10^3/uL (0.0-0.1); Basophils % 0.8 %; Eosinophils # 0.2 10^3/uL (0.0-0.8); Eosinophils % 2.3 %; Hematocrit 47.4 % (42.0-52.0); Hemoglobin 16.7 g/dL (11.7-16.6); Lymphocytes # 2.2 10^3/uL (0.8-4.8); Lymphocytes % 30.6 %; Mean Corpuscular HGB Conc 35.2 g/dL (30.0-36.0); Mean Corpuscular Hemoglobin 31.1 pg (28.0-34.0); Mean Corpuscular Volume 88.3 fl (80-94); Mean Platelet Volume 11.8 fL (7.4-10.4); Monocytes # 0.6 10^3/uL (0.2-0.9); Monocytes % 7.5 %; Neutrophils # 4.28 10^3/uL (1.8-7.7); Neutrophils % 58.4 %; Nucleated Red Blood Cells % 0 %; Platelet Count 234 10^3/cmm (130-400); Red Blood Count 5.37 10^6/uL (4.1-5.3); Red Cell Distribution Width 12.9 % (12.1-15.1); White Blood Count 7.3 10^3/uL (4.0-10.0)
[2021-04-30 11:15] LABS: Alanine Aminotransferase 40 U/L (0-41); Albumin Level 4.5 g/dL (3.5-5.2); Alkaline Phosphatase 68 IU/L (40-130); Anion Gap 16.7 (5-19); Aspartate Amino Transferase 24 U/L (0-40); Blood Urea Nitrogen 11 mg/dL (6-20); Calcium 8.6 mg/dL (8.5-10.5); Carbon Dioxide 24 mmol/L (22-29); Chloride 104 mmol/L (98-107); Globulin 2.3 g/dL (1.3-4.6); Glomerular Filtration Rate 126.9 mL/min (90-130); Glucose 110 mg/dL (65-115); Lactate Dehydrogenase 180 U/L (135-225); Osmolality Calculated 292 mOsm/kg (285-295); Potassium 3.7 mmol/L (3.5-5.1); Sodium 141 mmol/L (136-145); Thyroid Stimulating Hormone 0.77 uIU/mL (0.27-4.20); Total Bilirubin 0.4 mg/dL (0.15-1.2); Total Protein 6.8 g/dL (6.6-8.7)
== END 2021-04-30 10:04 | disposition home or self-care (01) ==
PROVIDERS: Internal Medicine Medical Oncology; PCP Family Medicine; Visit Provider Family Medicine
DX: Z51.12 Encounter for antineoplastic immunotherapy (principal); C43.59 Malignant melanoma of other part of trunk; C77.3 Secondary and unspecified malignant neoplasm of axilla and upper limb lymph nodes
CPT/HCPCS: 80053; 83615; 84443; 85025; 96413; J7050; J9299

== ENCOUNTER 2021-05-28 08:07 | Outpatient (CLI) | payer SELFPAY ==
[2021-05-28] MEDS: sodium chloride 0.9% 250 ML 600 ML IV (08:40)
[2021-05-28 08:52] LABS: Basophils # 0.1 10^3/uL (0.0-0.1); Basophils % 0.6 %; Eosinophils # 0.2 10^3/uL (0.0-0.8); Eosinophils % 2.4 %; Hematocrit 51.7 % (42.0-52.0); Hemoglobin 18.1 g/dL (11.7-16.6); Lymphocytes # 2.3 10^3/uL (0.8-4.8); Lymphocytes % 23.1 %; Mean Corpuscular Hemoglobin 31.4 pg (28.0-34.0); Mean Corpuscular Volume 89.8 fl (80-94); Mean Platelet Volume 11.5 fL (7.4-10.4); Monocytes # 0.7 10^3/uL (0.2-0.9); Monocytes % 6.9 %; Neutrophils # 6.68 10^3/uL (1.8-7.7); Neutrophils % 66.6 %; Nucleated Red Blood Cells % 0 %; Platelet Count 225 10^3/cmm (130-400); Red Blood Count 5.76 10^6/uL (4.1-5.3); Red Cell Distribution Width 12.8 % (12.1-15.1)
[2021-05-28 09:23] LABS: Alanine Aminotransferase 34 U/L (0-41); Albumin Level 4.7 g/dL (3.5-5.2); Alkaline Phosphatase 82 IU/L (40-130); Aspartate Amino Transferase 24 U/L (0-40); Blood Urea Nitrogen 9 mg/dL (6-20); Calcium 9.8 mg/dL (8.5-10.5); Carbon Dioxide 22 mmol/L (22-29); Chloride 103 mmol/L (98-107); Globulin 2.3 g/dL (1.3-4.6); Glomerular Filtration Rate 151.6 mL/min (90-130); Glucose 89 mg/dL (65-115); Osmolality Calculated 288 mOsm/kg (285-295); Sodium 140 mmol/L (136-145); Thyroid Stimulating Hormone 0.74 uIU/mL (0.27-4.20); Total Bilirubin 0.5 mg/dL (0.15-1.2)
[2021-05-28 09:29] LABS: Lactate Dehydrogenase 204 U/L (135-225)
--- NOTE | 2021-05-28 12:15 | ONC FU_ITS ---
Dr. Xiong Patient Follow-Up Note Patient: Joseph Morales Unit #: [id number]: 1985 Dicatated By: Yan Xiong M.D.Date of Visit:May 28, 2021 Onc Med Follow-up/Prog Note Chief Complaint: Metastatic melanoma. 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 He now has biopsy-proven recurrence with metastatic involvement in the left axillary lymph node. 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 He was diagnosed with superficial spreading melanoma of the left upper back by punch biopsy in April 2014. He underwent wide excision on 04/24/2014. Pathology showed malignant melanoma, Bruce level IV, with Brezlow depth 1.05 mm. There was no associated ulceration. The mitotic rate was 1.0/mm???. Angiolymphatic invasion was not identified. There was a brisk lymphocytic host response. The margins were free. It was pathologic stage 2a. He apparently was recommended to have lymph node sampling, which she declined. It sounds as though he may have had a staging PET/CT, that record is not available. In any case, he did not qualify for adjuvant therapy, and he was followed expectantly. On 10/12/2020 he was seen at Dr. Arnett's office with a 1-week history of an enlarged left axillary lymph node. He also complained of weakness/fatigue for 1 month. His blood pressure was elevated. His CBC showed elevated hemoglobin/hematocrit at 18.4 g and 53.2% with white blood cell count normal at 7500 and platelet count normal at 216,000. Sed rate was normal at 2 mm/h with C-reactive protein normal at 1.6 mg/L. Comprehensive metabolic profile was unrevealing. Renal function was normal with BUN 11 and creatinine 0.94 mg/dL. The bilirubin and liver enzymes were normal. He began treatment with lisinopril and prednisone. At his follow-up visit on 10/18/2010 there was no improvement in the adenopathy. I had seen him initially on 10/22/2020. He had palpable left axillary lymph node which measures 2 to 3 cm. I did not feel any other adenopathy. Staging PET/CT on 10/27/2020 showed an FDG avid 3.4 x 2.1 cm left axillary mass with SUV 14.4, high probability of representing recurrent melanoma. There were no other areas of abnormal uptake on that study. Other scattered axillary nodes were radiographically benign and FDG negative. With that finding he underwent left axillary lymph node biopsy on 11/08/2020. Pathology showed metastatic melanoma measuring 1.6 cm. There was evidence for extracapsular extension. 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 His staging head MRI on 12/03/2020 showed no evidence of metastatic involvement. With those findings he was recommended to undergo adjuvant immunotherapy with nivolumab for 12 months. His medical history is otherwise significant for hypertension and for mildly elevated hemoglobin/hematocrit levels. He has a history of smoking 1 pack of cigarettes daily for 15 years. He has had moderate alcohol use, reported at a 6-pack of beer daily. INTERIM HISTORY: He began cycle 1 of nivolumab 480 mg by IV infusion on 12/11/2020. He had increased fatigue for 3 to 4 days after that treatment. He had no other significant toxicity. He then continued treatment at 4-week intervals. He received his 6th cycle on 04/30/2021. He is seen for a scheduled visit. He has been feeling good generally. He is having less fatigue now. His ECOG score is 0. Appetite is good. He has no fever or night sweats. He has had a little bit of sore throat, presumed allergy related. He does not complain of cough, and he has not been having shortness of breath or chest pain. He has no GI complaints other than occasional heartburn. He has occasionally noticed some discoloration of his urine. He has no other symptoms. He has joint pain for about 3 days after treatment, but it is tolerable. He does not complain of headache or dizziness. He has some numbness in his hands, mainly when he is working. He has no other focal neurologic symptoms. Medications: Lisinopril (10 mg) Tablet Oral daily Allergies: No Known Allergies. Vital Signs: Performed on May 28, 2021 11:27 Height - 69.00 in Weight - 195.6 lbs (LOW) BSA - 2.05 sq.m BMI - 28.89 Temperature - 98.0 F (LOW) Pulse - 77 /min Respiration - 16 /min BP - 170/104 mm(hg) (HIGH) O2 Sat - 98 % Pain - 0 Fatigue - 0 Physical Examination: Constitutional - He looks good generally, Eyes - Sclerae nonicteric. Conjunctivae clear, ENMT - No lesions noted in the oral cavity, Hematologic/Lymphatic - No cervical, clavicular, or axillary adenopathy, Respiratory - Lungs are clear with good air movement bilaterally, Cardiovascular - Heart rhythm is regular. There is no murmur, gallop, or rub noted, Abdomen - Soft. Liver and spleen are not enlarged. There is no abdominal mass or ascites noted and there is no inguinal adenopathy, Extremities - No edema, Neurologic - No focal neurologic deficits noted. Lab/Imaging: Test performed on May 28, 2021 08:42 LDH (Total) 204 U/L Sodium 140 mmol/L TSH 0.74 uIU/mL Potassium 4.0 mmol/L Chloride 103 mmol/L CO2 22 mmol/L Anion Gap 19.0 BUN 9 mg/dL Creatinine 0.6 mg/dL Cr Clearance (Est) 211.54 mL/min eGFR 151.6 mL/min Glucose 89 mg/dL Osmolality - Calculated 288 mOsm/kg Calcium 9.8 mg/dL Protein, Total 7.0 g/dL Albumin 4.7 g/dL Globulin 2.3 g/dL Bilirubin, Total 0.5 mg/dL ALT (SGPT) 34 U/L AST (SGOT) 24 U/L Alkaline Phosphatase 82 IU/L WBC 10.0 10 3/uL RBC 5.76 10 6/uL HGB 18.1 g/dL HCT 51.7 % MCV 89.8 fl MCH 31.4 pg MCHC 35.0 g/dL RDW 12.8 % Platelet Count 225 10 3/cmm MPV 11.5 fL Neutrophils 6.68 10 3/uL Lymphocytes 2.3 10 3/uL Monocytes 0.7 10 3/uL Eosinophils 0.2 10 3/uL Basophils 0.1 10 3/uL Neutrophil % 66.6 % Lymphocyte % 23.1 % Monocyte % 6.9 % Eosinophil % 2.4 % Basophils % 0.6 % NRBC % 0 % Problem List: 1. Malignant melanoma involving the left upper back, by clinical evaluation stage IB (pT2a, N0, M0). He underwent wide excision on 04/24/2014. He declined lymph node sampling. 2. New onset of left axillary lymphadenopathy, highly suspicious for recurrent melanoma. 3. Elevated hemoglobin/hematocrit. This is almost certainly some form of secondary polycythemia, most likely decreased plasma volume, i.e. stress erythrocytosis . Some component may be related to smoking, though by clinical evaluation he does not appear to any overt associated lung disease. 4. Hypertension. Problems Addressed with this Encounter and Plan: 1. Patient with malignant melanoma involving the left upper back, by clinical evaluation stage IB (pT2a, N0, M0) at initial diagnosis. He underwent wide excision on 04/24/2014. He declined lymph node sampling. He was followed expectantly. In October 2020 he presented with new onset of left axillary lymphadenopathy. Staging PET/CT on 10/27/2020 showed an FDG avid 3.4 x 2.1 cm left axillary mass with SUV 14.4, high probability of representing recurrent melanoma. There were no other areas of abnormal uptake on that study. Other scattered axillary nodes were radiographically benign and FDG negative. With that finding he underwent left axillary lymph node biopsy on 11/08/2020. Pathology showed metastatic melanoma measuring 1.6 cm. There was evidence for extracapsular extension. 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 In the setting of pathologically confirmed axillary lymph node recurrence which was completely resected, he was recommended to undergo adjuvant immunotherapy with nivolumab for 12 months. He began cycle 1 of nivolumab on 12/11/2020. He had mild fatigue for 3 to 4 days afterwards. He then continued treatment at 4-week intervals. He has now completed 6 cycles. Side effects have been limited to fatigue and joint pain, both of which remain tolerable. As such, he'll proceed now with cycle 7 of nivolumab at 480 mg by IV infusion. He returns for treatment in 4 weeks and for a follow-up visit in 8 weeks. 2. He has mildly elevated hemoglobin/hematocrit levels, most likely due to decreased plasma volume or some other form of secondary polycythemia. His blood counts are being monitored monthly. He will have further evaluation only as indicated. Signed By: Yan Xiong M.D. <<Signature on File>>
== END 2021-05-28 08:08 | disposition home or self-care (01) ==
LOC: ONCMED 08:09
PROVIDERS: PCP Family Medicine; Visit Provider Internal Medicine Medical Oncology
DX: Z51.12 Encounter for antineoplastic immunotherapy (principal); C77.3 Secondary and unspecified malignant neoplasm of axilla and upper limb lymph nodes; C43.9 Malignant melanoma of skin, unspecified; I10 Essential (primary) hypertension; F17.210 Nicotine dependence, cigarettes, uncomplicated; Z79.899 Other long term (current) drug therapy
CPT/HCPCS: 36415; 80053; 83615; 84443; 85025; 96413; 99215; J7050; J9299

== ENCOUNTER 2021-06-25 13:25 | Outpatient (CLI) | payer SELFPAY | END 2021-06-25 13:26 | disposition home or self-care (01) | PROVIDERS: PCP Family Medicine; Visit Provider Internal Medicine Medical Oncology | DX: Z51.11 Encounter for antineoplastic chemotherapy (principal); C77.3 Secondary and unspecified malignant neoplasm of axilla and upper limb lymph nodes; Z85.820 Personal history of malignant melanoma of skin; I10 Essential (primary) hypertension | CPT/HCPCS: 96413; J7050; J9299 ==

== ENCOUNTER 2021-07-23 09:42 | Outpatient (CLI) | payer SELFPAY ==
[2021-07-23 10:11] LABS: Basophils # 0.1 10^3/uL (0.0-0.1); Basophils % 0.8 %; Eosinophils # 0.2 10^3/uL (0.0-0.8); Eosinophils % 2.2 %; Hematocrit 52.9 % (42.0-52.0); Hemoglobin 18.6 g/dL (11.7-16.6); Lymphocytes # 2.4 10^3/uL (0.8-4.8); Lymphocytes % 27.2 %; Mean Corpuscular HGB Conc 35.2 g/dL (30.0-36.0); Mean Corpuscular Hemoglobin 31.5 pg (28.0-34.0); Mean Corpuscular Volume 89.7 fl (80-94); Mean Platelet Volume 12.2 fL (7.4-10.4); Monocytes # 0.7 10^3/uL (0.2-0.9); Monocytes % 7.8 %; Neutrophils # 5.34 10^3/uL (1.8-7.7); Neutrophils % 61.7 %; Nucleated Red Blood Cells % 0 %; Platelet Count 215 10^3/cmm (130-400); Red Cell Distribution Width 12.2 % (12.1-15.1); White Blood Count 8.7 10^3/uL (4.0-10.0)
[2021-07-23 10:40] LABS: Alanine Aminotransferase 38 U/L (0-41); Albumin Level 4.8 g/dL (3.5-5.2); Alkaline Phosphatase 80 IU/L (40-130); Blood Urea Nitrogen 11 mg/dL (6-20); Calcium 9.7 mg/dL (8.5-10.5); Carbon Dioxide 23 mmol/L (22-29); Chloride 102 mmol/L (98-107); Globulin 2.8 g/dL (1.3-4.6); Glomerular Filtration Rate 151.6 mL/min (90-130); Glucose 103 mg/dL (65-115); Osmolality Calculated 282 mOsm/kg (285-295); Sodium 136 mmol/L (136-145); Thyroid Stimulating Hormone 0.97 uIU/mL (0.27-4.20); Total Bilirubin 0.6 mg/dL (0.15-1.2); Total Protein 7.6 g/dL (6.6-8.7)
[2021-07-23 10:48] LABS: Anion Gap 15.2 (5-19); Aspartate Amino Transferase 26 U/L (0-40); Lactate Dehydrogenase 179 U/L (135-225); Potassium 4.2 mmol/L (3.5-5.1)
--- NOTE | 2021-07-23 19:56 | ONC FU_ITS ---
Ml Meyer Progress Note Patient: Joseph Morales Unit #: [id number]: 1985 Dicatated By: Ml Meyer N.P.Date of Visit:Jul 23, 2021 Onc MED Follow-up/Prog Note Chief Complaint: Metastatic melanoma. 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 He now has biopsy-proven recurrence with metastatic involvement in the left axillary lymph node. 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 He was diagnosed with superficial spreading melanoma of the left upper back by punch biopsy in April 2014. He underwent wide excision on 04/24/2014. Pathology showed malignant melanoma, Bruce level IV, with Brezlow depth 1.05 mm. There was no associated ulceration. The mitotic rate was 1.0/mm???. Angiolymphatic invasion was not identified. There was a brisk lymphocytic host response. The margins were free. It was pathologic stage 2a. He apparently was recommended to have lymph node sampling, which she declined. It sounds as though he may have had a staging PET/CT, that record is not available. In any case, he did not qualify for adjuvant therapy, and he was followed expectantly. On 10/12/2020 he was seen at Dr. Arnett's office with a 1-week history of an enlarged left axillary lymph node. He also complained of weakness/fatigue for 1 month. His blood pressure was elevated. His CBC showed elevated hemoglobin/hematocrit at 18.4 g and 53.2% with white blood cell count normal at 7500 and platelet count normal at 216,000. Sed rate was normal at 2 mm/h with C-reactive protein normal at 1.6 mg/L. Comprehensive metabolic profile was unrevealing. Renal function was normal with BUN 11 and creatinine 0.94 mg/dL. The bilirubin and liver enzymes were normal. He began treatment with lisinopril and prednisone. At his follow-up visit on 10/18/2010 there was no improvement in the adenopathy. Dr. Xiong had seen him initially on 10/22/2020. He had palpable left axillary lymph node which measures 2 to 3 cm. He did not feel any other adenopathy. Staging PET/CT on 10/27/2020 showed an FDG avid 3.4 x 2.1 cm left axillary mass with SUV 14.4, high probability of representing recurrent melanoma. There were no other areas of abnormal uptake on that study. Other scattered axillary nodes were radiographically benign and FDG negative. With that finding he underwent left axillary lymph node biopsy on 11/08/2020. Pathology showed metastatic melanoma measuring 1.6 cm. There was evidence for extracapsular extension. 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 His staging head MRI on 12/03/2020 showed no evidence of metastatic involvement. With those findings he was recommended to undergo adjuvant immunotherapy with nivolumab for 12 months. His medical history is otherwise significant for hypertension and for mildly elevated hemoglobin/hematocrit levels. He has a history of smoking 1 pack of cigarettes daily for 15 years. He has had moderate alcohol use, reported at a 6-pack of beer daily. INTERIM HISTORY: He began cycle 1 of nivolumab 480 mg by IV infusion on 12/11/2020. He had increased fatigue for 3 to 4 days after that treatment. He had no other significant toxicity. He then continued treatment at 4-week intervals. He received his 6th cycle on 04/30/2021. Patient presents today for follow-up. He states he is feeling well. He states he feels a little bit groggy right after treatment but goes away within a day or 2. His appetite has been good. He denies fever, chills, night sweats. No sinus drainage or mouth sores. No shortness of breath, cough, chest pain. No GI or problems. No joint or bone pain. No numbness or tingling. Review Of Symptoms: See above Past Medical History: History of melanoma Hypertension Past Surgical History: Open reduction for left clavicle fracture Right hand surgery for staff cellulitis Tendon repair on the left hand Wide excision of melanoma from the left upper back in 2013 Allergies: No Known Allergies. Medications: Lisinopril (10 mg) Tablet Oral daily Family History: Both parents are living and in good health. He has one half-brother who also is in good health. His grandmother had breast cancer and his grandfather had lung cancer. Social History: Mr. Morales is . He is a daily smoker who smokes 1.0 pack/day. He drinks occasionally. He consumes 4 days/week. He has history of smoking 1 pack of cigarettes daily for 15 years. He drinks a sixpack of beer daily. Physical Examination: Performed on Jul 23, 2021 11:21: Height - 69.00 in, Weight - 197.2 lbs (HIGH), BSA - 2.05 sq.m, BMI - 29.12, Temperature - 97.9 F (LOW), Pulse - 85 /min, Respiration - 16 /min, BP - 136/83 mm(hg), O2 Sat - 97 %, Pain - 0, and Fatigue - 2. Performance Status: 0 - Fully active, able to carry on all predisease activities without restrictions. (ECOG) Constitutional Alert, cooperative, oriented. Mood and affect appropriate. Appears close to chronological age. Well nourished. Well developed. Head Normocephalic; no scars. Hematologic/Lymphatic No petechiae or purpura. No tender or palpable lymph nodes in the cervical, supraclavicular, axillary or inguinal area. Respiratory Lungs are clear to auscultation without rhonchi or wheezing. Cardiovascular Regular rate and rhythm of heart without murmurs, gallops or rubs. Abdomen Non-tender, non-distended, no masses, ascites or hepatosplenomegaly. Good bowel sounds. No guarding or rebound tenderness. Extremities No edema Psychiatric Alert and oriented times three. Coherent speech. Verbalizes understanding of our discussions today. Laboratory: Test performed on Jul 23, 2021 10:00 LDH (Total) 179 U/L Sodium 136 mmol/L TSH 0.97 uIU/mL Potassium 4.2 mmol/L Chloride 102 mmol/L CO2 23 mmol/L Anion Gap 15.2 BUN 11 mg/dL Creatinine 0.6 mg/dL Cr Clearance (Est) 213.27 mL/min eGFR 151.6 mL/min Glucose 103 mg/dL Osmolality - Calculated 282 mOsm/kg Calcium 9.7 mg/dL Protein, Total 7.6 g/dL Albumin 4.8 g/dL Globulin 2.8 g/dL Bilirubin, Total 0.6 mg/dL ALT (SGPT) 38 U/L AST (SGOT) 26 U/L Alkaline Phosphatase 80 IU/L WBC 8.7 10 3/uL RBC 5.90 10 6/uL HGB 18.6 g/dL HCT 52.9 % MCV 89.7 fl MCH 31.5 pg MCHC 35.2 g/dL RDW 12.2 % Platelet Count 215 10 3/cmm MPV 12.2 fL Neutrophils 5.34 10 3/uL Lymphocytes 2.4 10 3/uL Monocytes 0.7 10 3/uL Eosinophils 0.2 10 3/uL Basophils 0.1 10 3/uL Neutrophil % 61.7 % Lymphocyte % 27.2 % Monocyte % 7.8 % Eosinophil % 2.2 % Basophils % 0.8 % NRBC % 0 % Impression: 1. Malignant melanoma involving the left upper back, by clinical evaluation stage IB (pT2a, N0, M0). He underwent wide excision on 04/24/2014. He declined lymph node sampling. 2. New onset of left axillary lymphadenopathy, highly suspicious for recurrent melanoma. 3. Elevated hemoglobin/hematocrit. This is almost certainly some form of secondary polycythemia, most likely decreased plasma volume, i.e. stress erythrocytosis . Some component may be related to smoking, though by clinical evaluation he does not appear to any overt associated lung disease. 4. Hypertension. Plan: 1. Patient with malignant melanoma involving the left upper back, by clinical evaluation stage IB (pT2a, N0, M0) at initial diagnosis. He underwent wide excision on 04/24/2014. He declined lymph node sampling. He was followed expectantly. In October 2020 he presented with new onset of left axillary lymphadenopathy. Staging PET/CT on 10/27/2020 showed an FDG avid 3.4 x 2.1 cm left axillary mass with SUV 14.4, high probability of representing recurrent melanoma. There were no other areas of abnormal uptake on that study. Other scattered axillary nodes were radiographically benign and FDG negative. With that finding he underwent left axillary lymph node biopsy on 11/08/2020. Pathology showed metastatic melanoma measuring 1.6 cm. There was evidence for extracapsular extension. 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 In the setting of pathologically confirmed axillary lymph node recurrence which was completely resected, he was recommended to undergo adjuvant immunotherapy with nivolumab for 12 months. He began cycle 1 of nivolumab on 12/11/2020. He had mild fatigue for 3 to 4 days afterwards. He then continued treatment at 4-week intervals. He has now completed 8 cycles. The only side effects he has had is mild fatigue for the first day or 2 after treatment. He will continue with cycle 9 today and continue every 4-week intervals. Return to the clinic in 8 weeks with CBC and CMP. 2. He has mildly elevated hemoglobin/hematocrit levels, most likely due to decreased plasma volume or some other form of secondary polycythemia. His blood counts are being monitored monthly. He will have further evaluation only as indicated. Signed By: Ml Meyer N.P. <<Signature on File>>
== END 2021-07-23 09:43 | disposition home or self-care (01) ==
PROVIDERS: Nurse Practitioner Family; PCP Family Medicine; Visit Provider Internal Medicine Medical Oncology
DX: Z51.12 Encounter for antineoplastic immunotherapy (principal); C43.59 Malignant melanoma of other part of trunk; C77.3 Secondary and unspecified malignant neoplasm of axilla and upper limb lymph nodes; F17.210 Nicotine dependence, cigarettes, uncomplicated; I10 Essential (primary) hypertension; R79.9 Abnormal finding of blood chemistry, unspecified
CPT/HCPCS: 80053; 83615; 84443; 85025; 96413; 99215; J7050; J9299

== ENCOUNTER 2021-08-20 11:10 | Outpatient (CLI) | payer SELFPAY | END 2021-08-20 11:11 | disposition home or self-care (01) | PROVIDERS: PCP Family Medicine; Visit Provider Internal Medicine Medical Oncology | DX: Z51.12 Encounter for antineoplastic immunotherapy (principal); C43.59 Malignant melanoma of other part of trunk; R59.0 Localized enlarged lymph nodes; Z79.899 Other long term (current) drug therapy | CPT/HCPCS: 96413; J7050; J9299 ==

== ENCOUNTER 2021-09-03 11:34 | Outpatient (CLI) | payer SELFPAY ==
--- NOTE | 2021-09-03 11:53 | XRR_ITS ---
PROCEDURE INFORMATION: Exam: XR Chest Exam date and time: 09/03/2021 11:57 AM Age: 36 years old Clinical indication: Condition or disease; Lung condition and disease; Other: Acute lower respiratory tract infection; Patient HX: HX of cancer of lymph nodes TECHNIQUE: Imaging protocol: XR of the chest. Views: 2 views. COMPARISON: No relevant prior studies available. FINDINGS: Lungs: Unremarkable. No consolidation. Pleural spaces: Unremarkable. No pleural effusion. No pneumothorax. Heart/Mediastinum: Unremarkable. No cardiomegaly. Bones/joints: Unremarkable. XR/XR chest 2V* [id number] IMPRESSION: No significant abnormality.
== END 2021-09-03 11:35 | disposition home or self-care (01) ==
PROVIDERS: PCP Family Medicine; Visit Provider Clinical Nurse Specialist Adult Health
DX: J22 Unspecified acute lower respiratory infection (principal); Z85.72 Personal history of non-Hodgkin lymphomas
CPT/HCPCS: 71046

== ENCOUNTER 2021-09-17 08:36 | Oncology outpatient (recurring) (ONCR) | payer SELFPAY ==
[2021-09-17 09:28] LABS: Basophils # 0.1 10^3/uL (0.0-0.1); Eosinophils # 0.1 10^3/uL (0.0-0.8); Eosinophils % 1.1 %; Hematocrit 51.9 % (42.0-52.0); Hemoglobin 18.3 g/dL (11.7-16.6); Lymphocytes # 2.3 10^3/uL (0.8-4.8); Mean Corpuscular HGB Conc 35.3 g/dL (30.0-36.0); Mean Corpuscular Hemoglobin 31.3 pg (28.0-34.0); Mean Corpuscular Volume 88.7 fl (80-94); Mean Platelet Volume 11.7 fL (7.4-10.4); Monocytes # 0.5 10^3/uL (0.2-0.9); Monocytes % 6.7 %; Neutrophils # 4.89 10^3/uL (1.8-7.7); Neutrophils % 61.8 %; Nucleated Red Blood Cells % 0 %; Platelet Count 321 10^3/cmm (130-400); Red Blood Count 5.85 10^6/uL (4.1-5.3); Red Cell Distribution Width 12.6 % (12.1-15.1); White Blood Count 7.9 10^3/uL (4.0-10.0)
[2021-09-17 09:48] LABS: Alanine Aminotransferase 38 U/L (0-41); Albumin Level 4.6 g/dL (3.5-5.2); Alkaline Phosphatase 76 IU/L (40-130); Blood Urea Nitrogen 9 mg/dL (6-20); Calcium 9.4 mg/dL (8.5-10.5); Carbon Dioxide 23 mmol/L (22-29); Chloride 103 mmol/L (98-107); Globulin 2.7 g/dL (1.3-4.6); Glomerular Filtration Rate 151.6 mL/min (90-130); Glucose 101 mg/dL (65-115); Osmolality Calculated 285 mOsm/kg (285-295); Sodium 138 mmol/L (136-145); Total Bilirubin 0.5 mg/dL (0.15-1.2); Total Protein 7.3 g/dL (6.6-8.7)
[2021-09-17 09:53] LABS: Anion Gap 15.9 (5-19); Aspartate Amino Transferase 28 U/L (0-40); Potassium 3.9 mmol/L (3.5-5.1)
[2021-09-17] MEDS: nivolumab 480 MG in sodium chloride 0.9% 250 ML 596 MG IV (12:29)
== END 2021-10-01 23:59 | disposition home or self-care (01) ==
PROVIDERS: Nurse Practitioner Family; PCP Family Medicine; Referring Provider Family Medicine; Visit Provider Internal Medicine Medical Oncology
DX: C43.59 Malignant melanoma of other part of trunk (principal)
CPT/HCPCS: 80053; 85025; 96413; 99214; J7050; J9299

== ENCOUNTER 2021-10-15 10:02 | Oncology outpatient (recurring) (ONCR) | payer SELFPAY ==
[2021-10-15 10:50] VITALS: BMI 28.0
[2021-10-15] MEDS: sodium chloride 0.9% 250 ML 75 ML IV (10:58)
[2021-10-15] MEDS: nivolumab 480 MG in sodium chloride 0.9% 250 ML 596 MG IV (11:04)
[2021-10-15 12:05] VITALS: BP 156/102; PULSE 77; RESP 18; TEMP 36.5; O2SAT 96
== END 2021-10-31 23:59 | disposition home or self-care (01) ==
LOC: ONCMED 10:02
PROVIDERS: PCP Family Medicine; Referring Provider Family Medicine; Visit Provider Internal Medicine Medical Oncology
DX: Z51.11 Encounter for antineoplastic chemotherapy (principal); C43.59 Malignant melanoma of other part of trunk
CPT/HCPCS: 96413; J7050; J9299

== ENCOUNTER 2021-11-12 08:33 | Oncology outpatient (recurring) (ONCR) | payer SELFPAY ==
[2021-11-12 09:18] LABS: Basophils # 0.1 10^3/uL (0.0-0.1); Basophils % 0.9 %; Eosinophils # 0.2 10^3/uL (0.0-0.8); Eosinophils % 2.7 %; Hematocrit 47.3 % (42.0-52.0); Lymphocytes # 2.2 10^3/uL (0.8-4.8); Lymphocytes % 28.4 %; Mean Corpuscular HGB Conc 35.9 g/dL (30.0-36.0); Mean Corpuscular Hemoglobin 31.8 pg (28.0-34.0); Mean Corpuscular Volume 88.6 fl (80-94); Mean Platelet Volume 12.3 fL (7.4-10.4); Monocytes # 0.7 10^3/uL (0.2-0.9); Monocytes % 8.6 %; Neutrophils # 4.66 10^3/uL (1.8-7.7); Nucleated Red Blood Cells % 0 %; Platelet Count 229 10^3/cmm (130-400); Red Blood Count 5.34 10^6/uL (4.1-5.3); Red Cell Distribution Width 13.5 % (12.1-15.1); White Blood Count 7.9 10^3/uL (4.0-10.0)
[2021-11-12 09:52] LABS: Alanine Aminotransferase 58 U/L (0-41); Albumin Level 4.5 g/dL (3.5-5.2); Alkaline Phosphatase 76 IU/L (40-130); Aspartate Amino Transferase 30 U/L (0-40); Blood Urea Nitrogen 8 mg/dL (6-20); Calcium 8.9 mg/dL (8.5-10.5); Carbon Dioxide 25 mmol/L (22-29); Chloride 103 mmol/L (98-107); Globulin 2.5 g/dL (1.3-4.6); Glomerular Filtration Rate 108.8 mL/min (90-130); Glucose 91 mg/dL (65-115); Osmolality Calculated 286 mOsm/kg (285-295); Sodium 139 mmol/L (136-145); Thyroid Stimulating Hormone 0.91 uIU/mL (0.27-4.20); Total Bilirubin 0.4 mg/dL (0.15-1.2)
[2021-11-12 09:56] LABS: Anion Gap 15.1 (5-19); Lactate Dehydrogenase 194 U/L (135-225); Potassium 4.1 mmol/L (3.5-5.1)
[2021-11-12 11:11] VITALS: BMI 28.9
[2021-11-12] MEDS: sodium chloride 0.9% 250 ML 75 ML IV (11:28)
[2021-11-12] MEDS: nivolumab 480 MG in sodium chloride 0.9% 250 ML 596 MG IV (11:46)
[2021-11-12 12:35] VITALS: BP 154/94; PULSE 78; RESP 18; TEMP 36.4; O2SAT 99
== END 2021-12-01 23:59 | disposition home or self-care (01) ==
PROVIDERS: PCP Family Medicine; Referring Provider Family Medicine; Visit Provider Internal Medicine Medical Oncology
DX: C43.59 Malignant melanoma of other part of trunk; Z51.12 Encounter for antineoplastic immunotherapy; R53.83 Other fatigue
CPT/HCPCS: 36415; 80053; 83615; 84443; 85025; 96413; J7050; J9299

== ENCOUNTER 2022-06-27 09:19 | Oncology outpatient (recurring) (ONCR) | payer SELFPAY ==
[2022-06-27 10:09] LABS: Basophils # 0.1 10^3/uL (0.0-0.1); Basophils % 1.4 %; Eosinophils # 0.4 10^3/uL (0.0-0.8); Eosinophils % 4.5 %; Hematocrit 52.5 % (42.0-52.0); Hemoglobin 18.3 g/dL (11.7-16.6); Lymphocytes % 25.8 %; Mean Corpuscular HGB Conc 34.9 g/dL (30.0-36.0); Mean Corpuscular Hemoglobin 33.5 pg (28.0-34.0); Mean Corpuscular Volume 96.2 fl (80-94); Monocytes # 0.6 10^3/uL (0.2-0.9); Monocytes % 7.2 %; Neutrophils # 4.81 10^3/uL (1.8-7.7); Neutrophils % 60.7 %; Nucleated Red Blood Cells % 0 %; Platelet Count 213 10^3/cmm (130-400); Red Blood Count 5.46 10^6/uL (4.1-5.3); Red Cell Distribution Width 12.8 % (12.1-15.1); White Blood Count 7.9 10^3/uL (4.0-10.0)
[2022-06-27 10:23] LABS: Alanine Aminotransferase 63 U/L (0-41); Albumin Level 4.4 g/dL (3.5-5.2); Alkaline Phosphatase 75 U/L (40-130); Anion Gap 13.3 (5-19); Aspartate Amino Transferase 35 U/L (0-40); Blood Urea Nitrogen 11 mg/dL (6-20); Calcium 9.8 mg/dL (8.5-10.5); Carbon Dioxide 29 mmol/L (22-29); Chloride 104 mmol/L (98-107); Globulin 2.3 g/dL (1.3-4.6); Glomerular Filtration Rate 108.2 mL/min (90-130); Glucose 111 mg/dL (65-115); Lactate Dehydrogenase 191 U/L (135-225); Osmolality Calculated 294 mOsm/kg (285-295); Potassium 4.3 mmol/L (3.5-5.1); Sodium 142 mmol/L (136-145); Total Bilirubin 0.4 mg/dL (0.15-1.2); Total Protein 6.7 g/dL (6.6-8.7)
== END 2022-07-01 23:59 | disposition home or self-care (01) ==
PROVIDERS: PCP Family Medicine; Referring Provider Family Medicine; Visit Provider Internal Medicine Medical Oncology
DX: C43.59 Malignant melanoma of other part of trunk (principal)
CPT/HCPCS: 36415; 80053; 83615; 85025

== ENCOUNTER 2023-01-01 00:09 | Inpatient (IN) | payer SELFPAY ==
[2023-01-01] VITALS (17 sets, daily range): BP systolic 141–205; BP diastolic 79–118; PULSE 81–104; RESP 16–20; TEMP 36.9–38; O2SAT 91–97; BMI 30.2
--- NOTE | 2023-01-01 00:20 | CTR_ITS ---
PROCEDURE INFORMATION: Exam: CT Abdomen And Pelvis With Contrast Exam date and time: 01/01/2023 12:55 AM Age: 37 years old Clinical indication: Abdominal pain; Localized; Patient HX: Lower abd pain, bloody mucus discharge from penis TECHNIQUE: Imaging protocol: Computed tomography of the abdomen and pelvis with contrast. Radiation optimization: All CT scans at this facility use at least one of these dose optimization techniques: automated exposure control; mA and/or kV adjustment per patient size (includes targeted exams where dose is matched to clinical indication); or iterative reconstruction. Contrast material: OMNI 350; Contrast volume: 100 ml; Contrast route: INTRAVENOUS (IV); REPORTING DATA: Count of CT and Cardiac NM exams in prior 12 months: This patient has received 0 known CTs and 0 known cardiac nuclear medicine studies in the 12 months prior to the current study. COMPARISON: CR XR chest 2V* [id number] 09/03/2021 11:57 AM RADIATION DOSE METRICS: Total DLP (mGy-cm): 739.43 FINDINGS: Lungs: The visualized lung chisholm show mild bibasilar atelectasis. Diaphragm: There is a small sliding hiatal hernia. Liver: The liver is enlarged, measuring 21.5 cm in length. There are no enhancing liver lesions. Gallbladder and bile ducts: No calcified gallstones are identified. There is no pericholecystic fluid. Pancreas: The pancreas is normal. Spleen: The spleen is normal in size and density. Adrenal glands: The adrenal glands are normal. Kidneys and ureters: There is no hydronephrosis. No renal or obstructive ureteral calculi are identified. Stomach and bowel: There is no evidence of small bowel or colonic obstruction. In the mid and distal sigmoid colon, there is a segment of colonic wall thickening containing diverticula with pericolonic inflammatory stranding (; 09/26 - ). There is no evidence of perforation or abscess. Appendix: The appendix is not identified. There are no pericecal inflammatory changes. Intraperitoneal space: No free air. No abscess or significant fluid collection. Vasculature: There is mild atherosclerotic calcification of the abdominal aorta and its branches without aneurysm. Lymph nodes: No enlarged retroperitoneal or mesenteric lymph nodes. Urinary bladder: The bladder shows normal contour. However, inflammatory stranding from diverticulitis reaches the posterior bladder wall, which appears thickened. There is sigmoid colon is in contact with the superior bladder wall. However, there is no gas in the urinary bladder. Reproductive: Unremarkable as visualized. Bones/joints: No acute fracture. Soft tissues: Normal. CT/CT abdomen pelvis w con* [id number] IMPRESSION: 1. Acute colitis/diverticulitis without abscess or perforation. As an underlying colonic malignancy cannot be excluded, a follow-up examination after a course of treatment is recommended if clinically warranted. 2. Thickening of the posterior bladder wall that is involved in mesenteric inflammatory changes of sigmoid diverticulitis. This may be secondary to infection/cystitis or reactive inflammatory changes. Colovesical fistula is not strongly suspected as there is no gas in the bladder lumen. 3. Hepatomegaly. THIS REPORT CONTAINS FINDINGS THAT MAY BE CRITICAL TO PATIENT CARE. The findings were verbally communicated via telephone conference with MARIO CABALLERO at 1:49 AM CDT on 01/01/2023. The findings were acknowledged and understood.
--- NOTE | 2023-01-01 00:21 | W.ED.ABDPA2 ---
HPI - Abdominal Pain General: Chief Complaint: Abdominal Pain Stated Complaint: Abdomin pain Time Seen by Provider: 01/01/23 00:12 Source: patient Mode of arrival: ambulatory Limitations: no limitations History of Present Illness: 37-year-old male states he been having abdominal pain throughout the day. States pain is sharp in nature mainly his lower abdomen rates an 8 out of 10 he has had nausea and vomiting denies any diarrhea he denies any worsening proving factors denies any fevers. Associated Symptoms: Reports nausea and vomiting; Denies chills, diarrhea, dysuria and fever(s) Review of Systems Const: Denies: fever(s), chills, body aches or change in appetite ENMT: Denies: throat pain or dental pain Card: Denies: chest pain Resp: Denies: dyspnea GI: Reports: abdominal pain, nausea and vomiting; Denies: diarrhea : Denies: dysuria Musc: Denies: neck pain or back pain Skin/Breast: Denies: rash Neuro: Denies: headache(s) PFSH ED PFSH: Medical History History of melanoma left side mid back Hypertension Surgical History History of melanoma excision (04/24/14) wide excision of melanoma from the left upper back Hx of hand surgery right hand surgery for staph cellulitis and tendon repair on the left hand Hx of shoulder surgery open reduction for left clavicle fracture S/P lymph node biopsy (11/08/20) left axillary lymph node biopsy Family History Other Cancer Dementia Diabetes Hypertension Lung disease Denies family history of CAD (coronary artery disease) Clotting disorder Hyperlipidemia Psychiatric illness Chronic kidney disease (CKD) Suicide Anesthesia complication Bleeding disorder Stroke Social History Smoking and tobacco status: current every day smoker (1 ppd) cigarettes Packs smoked per day: 1 Alcohol intake: current Alcohol intake frequency: 3 or more drinks per day Alcohol type: beer Physical Exam Const: COMMON NORMALS: no acute distress, patient oriented x3 and healthy appearing HENMT: COMMON NORMALS: normocephalic and atraumatic HEAD & SCALP: normocephalic and atraumatic Eye: COMMON NORMALS: conjunctivae normal CONJUNCTIVA: Yes conjunctivae normal Neck/C-Spine: COMMON NORMALS: full ROM and supple Chest: COMMONS NORMALS: normal inspection of the chest Resp: COMMON NORMALS: normal respiratory effort Cardio: COMMON NORMALS: regular rate, regular rhythm and No murmurs present (Cardio) RATE: regular rate RHYTHM: regular rhythm GI: COMMON NORMALS: Normal to inspection, nondistended, normoactive bowel sounds present, Soft to palpation and no masses PALPATION: Yes Soft to palpation OTHER: diffuse tenderness Extremity: COMMON NORMALS: normal to inspection and full ROM Neuro: COMMON NORMALS: patient oriented x3, moves all extremities and no focal motor deficits Psych: COMMON NORMALS: mental status grossly normal, Normal thought process present and cooperative THOUGHT PROCESS: Normal thought process present Skin: COMMON NORMALS: no rashes or lesions noted and no wounds GENERAL SKIN EXAM: no rashes or lesions noted Course Vital Signs: Vital signs: Vital Signs Temperature 98.4 F 01/01/23 00:22 Pulse Rate 91 01/01/23 00:44 Respiratory Rate 20 H 01/01/23 00:44 Blood Pressure 181/109 01/01/23 00:44 Pulse Oximetry 92 01/01/23 00:44 Oxygen Delivery Me thod Room Air 01/01/23 00:44 MDM - Abdominal Pain Medical Decision Making Patient presents here with diverticulitis does have an elevated white count of 20 will admit on IV antibiotics no signs of perforation. Medical Records I reviewed the patient's medical records. Lab Data I reviewed the patient's lab results. 01/01/23 00:36 01/01/23 00:36 Labs/Radiology: Laboratory Results WBC 20.33 10^3/uL (3.29-11.43) H 01/01/23 00:36 RBC 5.29 10^6/uL (3.85-5.65) 01/01/23 00:36 Hgb 17.90 g/dL (11.27-16.99) H 01/01/23 00:36 Hct 50.8 % (37-53) 01/01/23 00:36 MCV 96.0 fl (82-101) 01/01/23 00:36 MCH 33.8 pg (27-33) H 01/01/23 00:36 MCHC 35.2 g/dL (30-55) 01/01/23 00:36 RDW 13.0 % (12.1-15.1) 01/01/23 00:36 Plt Count 197 10^3/cmm (157-399) 01/01/23 00:36 MPV 11.3 fL (7.4-10.4) H 01/01/23 00:36 Neut % (Auto) 83.7 % 01/01/23 00:36 Lymph % (Auto) 6.8 % 01/01/23 00:36 [place] % (Auto) 8.4 % 01/01/23 00:36 Eos % (Auto) 0.1 % 01/01/23 00:36 Baso % (Auto) 0.3 % 01/01/23 00:36 Neut # (Auto) 17.01 10^3/uL (1.8-7.7) H 01/01/23 00:36 Lymph # (Auto) 1.4 10^3/uL (0.8-4.8) 01/01/23 00:36 [place] # (Auto) 1.7 10^3/uL (0.2-0.9) H 01/01/23 00:36 Eos # (Auto) 0.0 10^3/uL (0.0-0.8) 01/01/23 00:36 Baso # (Auto) 0.1 10^3/uL (0.0-0.1) 01/01/23 00:36 Nucleated RBC % (auto) 0 % 01/01/23 00:36 Nucleated RBCs # 0.0 /100WBC 01/01/23 00:36 Sodium 138 mmol/L (136-145) 01/01/23 00:36 Potassium 4.0 mmol/L (3.5-5.1) 01/01/23 00:36 Chloride 99 mmol/L (98-107) 01/01/23 00:36 Carbon Dioxide 27 mmol/L (22-29) 01/01/23 00:36 Anion Gap 16.0 (5-19) 01/01/23 00:36 BUN 10 mg/dL (6-20) 01/01/23 00:36 Creatinine 0.8 mg/dL (0.7-1.2) 01/01/23 00:36 GFR Calculation 108.2 mL/min (90-130) 01/01/23 00:36 Glucose 149 mg/dL (65-115) H 01/01/23 00:36 Calculated Osmolality 288 mOsm/kg (285-295) 01/01/23 00:36 Calcium 9.5 mg/dL (8.5-10.5) 01/01/23 00:36 Total Bilirubin 1.4 mg/dL (0.15-1.2) H 01/01/23 00:36 AST 23 U/L (0-40) 01/01/23 00:36 ALT 59 U/L (0-41) H 01/01/23 00:36 Alkaline Phosphatase 72 U/L (40-130) 01/01/23 00:36 Total Protein 7.5 g/dL (6.6-8.7) 01/01/23 00:36 Albumin 4.6 g/dL (3.5-5.2) 01/01/23 00:36 Globulin 2.9 g/dL (1.3-4.6) 01/01/23 00:36 Lipase 14 U/L (13-60) 01/01/23 00:36 Urine Color Yellow (Yellow) 01/01/23 01:07 Urine Appearance Clear (CLEAR) 01/01/23 01:07 Urine pH 6 (5-7) 01/01/23 01:07 Ur Specific [place] 1.015 (1.005-1.030) 01/01/23 01:07 Urine Protein 1+ (Negative) H 01/01/23 01:07 Urine Glucose (UA) Norm (Normal) 01/01/23 01:07 Urine Ketones Negative (Negative) 01/01/23 01:07 Urine Blood 2+ (Negative) H 01/01/23 01:07 Urine Nitrate Negative (Negative) 01/01/23 01:07 Urine Bilirubin Neg (Negative) 01/01/23 01:07 Urine Urobilinogen 1 mg/dL (Negative) H 01/01/23 01:07 Ur Leukocyte Esterase Trace (Negative) H 01/01/23 01:07 Urine RBC 0-4 /hpf (0-2) H 01/01/23 01:07 Urine WBC 0-4 /hpf (0-5) H 01/01/23 01:07 Ur Squamous Epith Cells 0-4 /hpf (0-5) H 01/01/23 01:07 Amorphous Sediment Not Reportable 01/01/23 01:07 Urine Bacteria Trace /hpf (NONE) 01/01/23 01:07 Urine Mucus 2+ /hpf 01/01/23 01:07 Discharge Plan Discharge Patient Disposition: Admitted As Inpatient Clinical Impression: Diverticulitis Condition: Stable Prescriptions: No Action lisinopril 10 mg tablet 10 mg PO DAILY Referrals: Bladimir Arnett DO [Primary Care Provider] - Patient Instructions: Opioid Safety, Pain Management Coding Level of Care Code ED [employer] for Osman Guzman
[2023-01-01] MEDS: ondansetron 2 mg/ML SDV 2 mL 4 MG IVP (00:32)
[2023-01-01] MEDS: HYDROmorphone 1 mg/mL INJ 1 mL IVP ×5 (00:33→13:47)
[2023-01-01] MEDS: sodium chloride 0.9% 1,000 ML 999 ML IV (00:34)
[2023-01-01 00:40] LABS: Basophils # 0.1 10^3/uL (0.0-0.1); Basophils % 0.3 %; Eosinophils % 0.1 %; Hematocrit 50.8 % (37-53); Lymphocytes # 1.4 10^3/uL (0.8-4.8); Lymphocytes % 6.8 %; Mean Corpuscular HGB Conc 35.2 g/dL (30-55); Mean Corpuscular Hemoglobin 33.8 pg (27-33); Mean Platelet Volume 11.3 fL (7.4-10.4); Monocytes # 1.7 10^3/uL (0.2-0.9); Monocytes % 8.4 %; Neutrophils # 17.01 10^3/uL (1.8-7.7); Neutrophils % 83.7 %; Nucleated Red Blood Cells % 0 %; Platelet Count 197 10^3/cmm (157-399); Red Blood Count 5.29 10^6/uL (3.85-5.65); White Blood Count 20.33 10^3/uL (3.29-11.43)
[2023-01-01 00:56] LABS: Alanine Aminotransferase 59 U/L (0-41); Albumin Level 4.6 g/dL (3.5-5.2); Alkaline Phosphatase 72 U/L (40-130); Aspartate Amino Transferase 23 U/L (0-40); Blood Urea Nitrogen 10 mg/dL (6-20); Calcium 9.5 mg/dL (8.5-10.5); Carbon Dioxide 27 mmol/L (22-29); Chloride 99 mmol/L (98-107); Globulin 2.9 g/dL (1.3-4.6); Glomerular Filtration Rate 108.2 mL/min (90-130); Glucose 149 mg/dL (65-115); Lipase 14 U/L (13-60); Osmolality Calculated 288 mOsm/kg (285-295); Sodium 138 mmol/L (136-145); Total Bilirubin 1.4 mg/dL (0.15-1.2); Total Protein 7.5 g/dL (6.6-8.7)
[2023-01-01] MEDS: iohexol 350 mg/mL 500 mL Btl (per mL) IV (01:13)
[2023-01-01 01:27] LABS: Urine Appearance Clear (CLEAR); Urine Color Yellow (Yellow)
[2023-01-01 01:28] LABS: Add Urine Culture? No; Add Urine Microscopic? YES; Bacteria Urine TRACE /hpf; Bilirubin Urine Neg (Negative); Blood Urine 2+ (Negative); Glucose Urine UA Norm (Normal); Ketones Urine Negative (Negative); Leukocyte Esterase Urine Trace (Negative); Mucus Urine 2+ /hpf; Nitrate Urine Negative (Negative); Protein Urine 1+ (Negative); RBC Urine 0-4 /hpf (0-2); Specific Gravity, Urine 1.015 (1.005-1.030); Squamous Epithelial Cell Urine 0-4 /hpf (0-5); Urobilinogen Urine 1 mg/dL (Negative); WBC Urine 0-4 /hpf (0-5); pH Urine 6 (5-7)
[2023-01-01] MEDS: ciprofloxacin 400 MG/200 ML PREMIX 200 MG IV ×2 (01:58→13:50)
--- NOTE | 2023-01-01 02:05 | P.HP_ITS ---
Providers/Chief Complaint Admitting Physician: Jossie Primary Care Provider: Bladimir Arnett DO Chief Complaint: Abdomin pain History of Present Illness Joseph Morales is a 37 year old male with history of hypertension presents with left lower quadrant abdominal pain for the past 24 hours. He states he woke up with it at 6 AM yesterday morning. He was able to work for half a day and came home. He has had nausea and vomiting. He has not been able to keep down his antihypertensives. In the emergency room his work-up showed an elevated white count of 20,[address] of the abdomen showed diverticulitis of the sigmoid colon. He was started on Cipro and Flagyl with fluids. Review of Systems Const: Denies: fever(s) or chills Eyes: Denies: change in vision ENMT: Denies: throat pain or nasal congestion Card: Denies: chest pain or palpitations Resp: Denies: dyspnea or productive cough GI: Reports: abdominal pain, nausea and vomiting; Denies: change in stool character : Denies: difficulty urinating or dysuria Musc: Denies: back pain or extremity pain Skin/Breast: Denies: rash or lesions Neuro: Denies: headache(s) or dizziness Psych: Denies: anxiety or depression [place]/Lymph: Denies: easy bruising or easy bleeding Medications/Allergies Home Medications Medication Instructions Recorded Confirmed Last Taken Type lisinopril 10 mg tablet 10 mg PO DAILY 11/02/20 06/27/22 11/07/20 History Allergies Allergy/AdvReac Type Severity Reaction Status Date / Time No Known Allergies Allergy Verified 06/27/22 11:15 PFSH Acute PFSH: Medical History History of melanoma left side mid back Hypertension Surgical History History of melanoma excision (04/24/14) wide excision of melanoma from the left upper back Hx of hand surgery right hand surgery for staph cellulitis and tendon repair on the left hand Hx of shoulder surgery open reduction for left clavicle fracture S/P lymph node biopsy (11/08/20) left axillary lymph node biopsy Family History Other Cancer Dementia Diabetes Hypertension Lung disease Denies family history of CAD (coronary artery disease) Clotting disorder Hyperlipidemia Psychiatric illness Chronic kidney disease (CKD) Suicide Anesthesia complication Bleeding disorder Stroke Social History Smoking and tobacco status: current every day smoker (1 ppd) cigarettes Packs smoked per day: 1 Alcohol intake: current Alcohol intake frequency: 3 or more drinks per day Alcohol type: beer Vitals/I&O/Wt Last Vital Signs Temp 98.4 F 01/01/23 00:22 Pulse 90 01/01/23 02:03 Resp 20 H 01/01/23 00:44 BP 172/108 01/01/23 02:03 Pulse Ox 97 01/01/23 02:03 O2 Del Method Room Air 01/01/23 02:03 Weight last 48 hrs Weight 92.986 kg Physical Exam Narrative: 37-year-old male well-nourished well-hydrated. Neurologic alert and oriented to person place time and situation nonfocal exam HEENT head is normocephalic atraumatic pupils equal round reactive to light and commendation extraocular muscles are intact there is no scleral icterus mucous membranes are moist and slightly erythematous. Neck is supple no JVD carotid bruits or lymphadenopathy. Chest: Symmetric with inspiration Heart: Normal S1-S2 without murmurs clicks gallops or rubs Lungs: Inspiratory and expiratory singular wheeze Abdomen: Distended exquisitely tender on the left lower quadrant and tenderness throughout Extremities: For present no clubbing cyanosis or edema Psych: Mood and affect are appropriate for current illness Skin: Warm and dry. No lesions or rashes. Tattoos noted on extremities Data 01/01/23 00:36 01/01/23 00:36 CT Abd/Pel: Radiologist's impression: CT/CT abdomen pelvis w con* [id number] IMPRESSION: 1. ? Acute colitis/diverticulitis without abscess or perforation. As an underlying colonic malignancy cannot be excluded, a follow-up examination after a course of treatment is recommended if clinically warranted. 2. ? Thickening of the posterior bladder wall that is involved in mesenteric inflammatory changes of sigmoid diverticulitis. This may be secondary to infection/cystitis or reactive inflammatory changes. Colovesical fistula is not strongly suspected as there is no gas in the bladder lumen. 3. ? Hepatomegaly. A&P Assessment and plan (1) Diverticulitis: Admit patient Cipro and Flagyl IV fluids N.p.o./bowel rest Sips and chips as needed (2) Hypertension: Will order Vasotec IV scheduled and hydralazine as needed Attestations Medical Necessity Statement*: Patient has an acute sigmoid diverticulitis at risk for perforation patient needs admission for 2 midnights for IV antibiotics and bowel rest Coding Level of Care Code Acute Code for [facility] Diagnoses Diverticulitis K57.92 Hypertension I10
[2023-01-01] MEDS: morphine 4 mg/mL SDV 1 mL 6 MG IVP (02:39)
[2023-01-01] MEDS: enalaprilat 1.25 mg/mL Inj 0.625 MG IVP (02:50)
[2023-01-01] MEDS: dextrose 5%-sod chloride 0.9% 1,000 ML 150 ML IV ×2 (02:50→12:15)
[2023-01-01] MEDS: metroNIDAZOLE IV 500 MG/100 ML PREMIX 100 MG IV ×3 (02:51→17:45)
--- NOTE | 2023-01-01 08:24 | PC.PHAR ---
pt states he takes care of his own medications-pt states he takes lisinopril 10mg daily ext doesnt show when last filled called [facility] tran doesnt open till 9-pt states he only takes the medications entered
[2023-01-01] MEDS: nicotine 21 mg Patch 1 PATCH TRANSDERMA (10:42)
[2023-01-01] MEDS: lisinopril 10 mg Tablet PO (12:18)
[2023-01-01] MEDS: oxyCODONE 5 mg IR Tab/Cap 10 MG PO ×2 (16:03→20:06)
[2023-01-01] MEDS: ketorolac 30 mg/mL INJ 15 MG IVP ×2 (16:03→23:45)
[2023-01-01] MEDS: dextrose 5%-sod chloride 0.9% 1,000 ML 100 ML IV (20:08)
[2023-01-02] VITALS: BP 134/78; PULSE 88; RESP 17; TEMP 37.6; O2SAT 94
[2023-01-02 00:34] VITALS: RESP 20
[2023-01-02] MEDS: oxyCODONE 5 mg IR Tab/Cap 10 MG PO (00:34)
[2023-01-02] MEDS: ciprofloxacin 400 MG/200 ML PREMIX 200 MG IV (01:23)
[2023-01-02] MEDS: metroNIDAZOLE IV 500 MG/100 ML PREMIX 100 MG IV (02:33)
[2023-01-02 04:00] VITALS: BP 128/77; PULSE 87; RESP 17; TEMP 37.4; O2SAT 94
[2023-01-02 04:53] LABS: Basophils # 0.1 10^3/uL (0.0-0.1); Basophils % 0.4 %; Eosinophils # 0.1 10^3/uL (0.0-0.8); Hematocrit 43.8 % (37-53); Lymphocytes # 1.3 10^3/uL (0.8-4.8); Lymphocytes % 9.3 %; Mean Corpuscular HGB Conc 33.8 g/dL (30-55); Mean Corpuscular Hemoglobin 34.2 pg (27-33); Mean Corpuscular Volume 101.2 fl (82-101); Mean Platelet Volume 11.9 fL (7.4-10.4); Monocytes # 0.9 10^3/uL (0.2-0.9); Monocytes % 6.1 %; Neutrophils # 11.76 10^3/uL (1.8-7.7); Neutrophils % 82.5 %; Nucleated Red Blood Cells % 0 %; Platelet Count 161 10^3/cmm (157-399); Red Blood Count 4.33 10^6/uL (3.85-5.65); Red Cell Distribution Width 13.1 % (12.1-15.1); White Blood Count 14.24 10^3/uL (3.29-11.43)
[2023-01-02 05:17] LABS: Blood Urea Nitrogen 10 mg/dL (6-20); Calcium 8.3 mg/dL (8.5-10.5); Carbon Dioxide 27 mmol/L (22-29); Chloride 100 mmol/L (98-107); Glomerular Filtration Rate 108.2 mL/min (90-130); Glucose 99 mg/dL (65-115); Osmolality Calculated 281 mOsm/kg (285-295); Sodium 136 mmol/L (136-145)
[2023-01-02 05:19] LABS: Anion Gap 12.8 (5-19); Potassium 3.8 mmol/L (3.5-5.1)
[2023-01-02] MEDS: ketorolac 30 mg/mL INJ 15 MG IVP (07:12)
[2023-01-02 07:15] VITALS: BP 170/91; PULSE 101; RESP 17; TEMP 37.2; O2SAT 94
[2023-01-02] MEDS: lisinopril 10 mg Tablet PO (08:09)
[2023-01-02] MEDS: nicotine 21 mg Patch 1 PATCH TRANSDERMA (08:10)
[2023-01-02] MEDS: dextrose 5%-sod chloride 0.9% 1,000 ML 100 ML IV (08:15)
--- NOTE | 2023-01-02 10:37 | P.DS_ITS ---
Discharge Providers Date of Admission: 01/01/23 01:49 Date of Discharge: January 02, 2023 Attending Provider at Admission: Florentin Sethi DO Attending Provider at Discharge: Orlando Hart MD Primary Care Provider: Bladimir Arnett DO Diagnoses at Discharge Discharge Diagnosis (1) Diverticulitis: Status: Acute (2) Hypertension: Status: Acute Reason for Visit Reason for Visit: Abdomin pain Hospital Course Hospital Course oJseph Morales is a 37-year-old male with a past medical history significant for hypertension and melanoma who presented with abdominal pain, found to have sigmoidal diverticulitis. Patient treated with ciprofloxacin and metronidazole. He was initially treated with bowel rest and advanced to liquid diet. Patient tolerating liquid diet and pain controlled with oral pain medications. Joseph requesting to go home by day of discharge. His recovery was quicker than expected. Patient discharged to home in stable condition. He is to follow up with his primary care physician for further care. Recommend considering referral for colonoscopy after complete recovery. Physical Exam Narrative: General: Patient is awake and alert. Head: Normocephalic. Atraumatic. EOM intact. Neck: No JVD. Cardiovascular: RRR. No gallops. No murmurs. No peripheral edema. Lungs: Clear to auscultation, no use of accessory muscles, no crackles or wheezes. Skin: No jaundice. No rashes. Abdomen: Normal bowel sounds, abdomen soft and nontender. Extremities: No cyanosis or clubbing. Musculoskeletal: No erythematous joints. Neurological: Moves all 4 extremities. No myoclonus. Discharge Data Studies Completed and Pending Completed Studies During Hospitalization Category Date Time Status CT abdomen pelvis w con* [id number] Stat Cat Scan 01/01/23 00:20 Completed Radiology Impressions Abdomen/Pelvis CT 01/01/23 00:20 IMPRESSION: 1. Acute colitis/diverticulitis without abscess or perforation. As an underlying colonic malignancy cannot be excluded, a follow-up examination after a course of treatment is recommended if clinically warranted. 2. Thickening of the posterior bladder wall that is involved in mesenteric inflammatory changes of sigmoid diverticulitis. This may be secondary to infection/cystitis or reactive inflammatory changes. Colovesical fistula is not strongly suspected as there is no gas in the bladder lumen. 3. Hepatomegaly. THIS REPORT CONTAINS FINDINGS THAT MAY BE CRITICAL TO PATIENT CARE. The findings were verbally communicated via telephone conference with MARIO CABALLERO at 1:49 AM CDT on 01/01/2023. The findings were acknowledged and understood. Laboratory Results WBC 14.24 10^3/uL (3.29-11.43) H 01/02/23 04:08 RBC 4.33 10^6/uL (3.85-5.65) 01/02/23 04:08 Hgb 14.80 g/dL (11.27-16.99) 01/02/23 04:08 Hct 43.8 % (37-53) 01/02/23 04:08 MCV 101.2 fl (82-101) H 01/02/23 04:08 MCH 34.2 pg (27-33) H 01/02/23 04:08 MCHC 33.8 g/dL (30-55) 01/02/23 04:08 RDW 13.1 % (12.1-15.1) 01/02/23 04:08 Plt Count 161 10^3/cmm (157-399) 01/02/23 04:08 MPV 11.9 fL (7.4-10.4) H 01/02/23 04:08 Neut % (Auto) 82.5 % 01/02/23 04:08 Lymph % (Auto) 9.3 % 01/02/23 04:08 [place] % (Auto) 6.1 % 01/02/23 04:08 Eos % (Auto) 1.0 % 01/02/23 04:08 Baso % (Auto) 0.4 % 01/02/23 04:08 Neut # (Auto) 11.76 10^3/uL (1.8-7.7) H 01/02/23 04:08 Lymph # (Auto) 1.3 10^3/uL (0.8-4.8) 01/02/23 04:08 [place] # (Auto) 0.9 10^3/uL (0.2-0.9) 01/02/23 04:08 Eos # (Auto) 0.1 10^3/uL (0.0-0.8) 01/02/23 04:08 Baso # (Auto) 0.1 10^3/uL (0.0-0.1) 01/02/23 04:08 Nucleated RBC % (auto) 0 % 01/02/23 04:08 Nucleated RBCs # 0.0 /100WBC 01/02/23 04:08 Sodium 136 mmol/L (136-145) 01/02/23 04:08 Potassium 3.8 mmol/L (3.5-5.1) 01/02/23 04:08 Chloride 100 mmol/L (98-107) 01/02/23 04:08 Carbon Dioxide 27 mmol/L (22-29) 01/02/23 04:08 Anion Gap 12.8 (5-19) 01/02/23 04:08 BUN 10 mg/dL (6-20) 01/02/23 04:08 Creatinine 0.8 mg/dL (0.7-1.2) 01/02/23 04:08 GFR Calculation 108.2 mL/min (90-130) 01/02/23 04:08 Glucose 99 mg/dL (65-115) 01/02/23 04:08 Calculated Osmolality 281 mOsm/kg (285-295) L 01/02/23 04:08 Calcium 8.3 mg/dL (8.5-10.5) L 01/02/23 04:08 Total Bilirubin 1.4 mg/dL (0.15-1.2) H 01/01/23 00:36 AST 23 U/L (0-40) 01/01/23 00:36 ALT 59 U/L (0-41) H 01/01/23 00:36 Alkaline Phosphatase 72 U/L (40-130) 01/01/23 00:36 Total Protein 7.5 g/dL (6.6-8.7) 01/01/23 00:36 Albumin 4.6 g/dL (3.5-5.2) 01/01/23 00:36 Globulin 2.9 g/dL (1.3-4.6) 01/01/23 00:36 Lipase 14 U/L (13-60) 01/01/23 00:36 Urine Color Yellow (Yellow) 01/01/23 01:07 Urine Appearance Clear (CLEAR) 01/01/23 01:07 Urine pH 6 (5-7) 01/01/23 01:07 Ur Specific [place] 1.015 (1.005-1.030) 01/01/23 01:07 Urine Protein 1+ (Negative) H 01/01/23 01:07 Urine Glucose (UA) Norm (Normal) 01/01/23 01:07 Urine Ketones Negative (Negative) 01/01/23 01:07 Urine Blood 2+ (Negative) H 01/01/23 01:07 Urine Nitrate Negative (Negative) 01/01/23 01:07 Urine Bilirubin Neg (Negative) 01/01/23 01:07 Urine Urobilinogen 1 mg/dL (Negative) H 01/01/23 01:07 Ur Leukocyte Esterase Trace (Negative) H 01/01/23 01:07 Urine RBC 0-4 /hpf (0-2) H 01/01/23 01:07 Urine WBC 0-4 /hpf (0-5) H 01/01/23 01:07 Ur Squamous Epith Cells 0-4 /hpf (0-5) H 01/01/23 01:07 Amorphous Sediment Not Reportable 01/01/23 01:07 Urine Bacteria Trace /hpf (NONE) 01/01/23 01:07 Urine Mucus 2+ /hpf 01/01/23 01:07 Vitals Last Vital Signs Temp 99.0 F 01/02/23 07:15 Pulse 101 H 01/02/23 07:15 Resp 17 01/02/23 07:15 BP 170/91 01/02/23 07:15 Pulse Ox 94 01/02/23 07:15 O2 Del Method Room Air 01/02/23 04:00 Discharge Plan Discharge Patient Disposition: Home Condition: Stable Prescriptions: New Percocet 10-325 mg tablet 1 tab PO Q4H PRN (Reason: pain) 5 Days Qty: 14 0RF ciprofloxacin HCl 500 mg tablet 500 mg PO Q12H 13 Days Qty: 26 0RF metronidazole 500 mg tablet 500 mg PO Q8H 13 Days Qty: 39 0RF Continued lisinopril 10 mg tablet 10 mg PO QAM multivitamin Tablet 1 tab PO DAILY Gas-X 80 mg Tablet,Chewable 80 mg PO DAILY PRN (Reason: unknown) Discharge Orders: Discharge Order (Routine); Ordered 01/02/23 Ordered By: Orlando Hart Referrals: Bladimir Arnett DO [Primary Care Provider] - 2 weeks Discharge Diet: Advance as tolerated and As Directed Discharge Activity: Resume usual activity and Increase activity as tolerated Patient Instructions: Opioid Safety, Pain Management Activity Restrictions/Additional Instructions: 1. No driving or operating machinery while on opiates. 2. Take medications as prescribed. 3. Follow up with PCP in 1-2 weeks. Patient's Health Concerns: What is diverticulitis? Diverticulitis is a disorder that can cause belly pain, fever, and problems with bowel movements. The food we eat travels from the stomach through a long tube called the intestine. The last part of that tube is the colon. The colon sometimes has small pouches in its littlejohn. These pouches are called diverticula. Many people who have these pouches have no symptoms. Diverticulitis happens when these pouches develop a small tear known as a microperforation, which then becomes infected and causes symptoms. What are symptoms of diverticulitis? The most common symptom of diverticulitis is pain. This usually affects the lower part of the belly. Other symptoms can include: ?Fever ?Constipation ?Diarrhea ?Nausea and vomiting Is there a test for diverticulitis? Yes. There are a few tests that your doctor can do to find out if you have diverticulitis. But tests are not always needed. If you do have a test, you might have a: ?CT scan?? A CT scan is a kind of imaging test. Imaging tests create pictures of the inside of your body. ?Abdominal ultrasound?? This test uses sound waves to create pictures of your intestines. How is diverticulitis treated? If your disease is mild and you are otherwise healthy, you might be treated at home. This usually involves a liquid diet and medicine to relieve pain. In this case, follow up with your doctor or nurse to make sure that your symptoms improve. If you have severe disease, you are not in good health, or your symptoms don't get better in 2 to 3 days, you might need to stay in the hospital. In the hospital, treatment usually includes fluids and antibiotics. These are given through a thin tube that goes into a vein, called an IV. That way, you can avoid eating and drinking until you get better. In addition, if you have a serious infection, the doctor might put a tube into your belly to drain the infection. In very bad cases, people need surgery to remove the part of the colon that is affected. A few months after your infection has been treated, your doctor might recommend that you have a procedure called a colonoscopy During a colonoscopy, the doctor can look directly inside your colon to check for signs of cancer. Should I change my diet if I have had diverticulitis? If you have had diverticulitis, it's a good idea to eat a lot of fiber?after ?your symptoms have gotten better. Good sources of fiber include fruits, oats, beans, peas, and green leafy vegetables. You do?not?need to avoid seeds, nuts, popcorn, or other similar foods. Follow all of your doctor or nurse's instructions about diet while they are treating you for diverticulitis. Discharge Attestations Time Spent in Discharge Care*: greater than 30 min Quality Metrics Clinical Quality Measures [ No reported AMI, CVA or VTE this stay] Coding Level of Care Code Acute Code for [facility] Fwd Diagnoses Diverticulitis K57.92 Hypertension I10
[2023-01-02 10:56] VITALS: BP 131/79; PULSE 66; RESP 16; TEMP 37.1; O2SAT 99
[2023-01-02 11:59] VITALS: BP 131/79; PULSE 66; RESP 16; TEMP 37.1; O2SAT 99
== END 2023-01-02 12:01 | disposition home or self-care (01) | DRG 392 ==
LOC: ER 01:51 → MEDSURG 02:12
PROVIDERS: Admitting Provider Internal Medicine; Emergency Provider Emergency Medicine; PCP Family Medicine; Visit Provider Internal Medicine
DX: K57.32 Diverticulitis of large intestine without perforation or abscess without bleeding (principal); I10 Essential (primary) hypertension; Z85.820 Personal history of malignant melanoma of skin; F17.210 Nicotine dependence, cigarettes, uncomplicated
CPT/HCPCS: 36415; 74177; 80048; 80053; 81001; 83690; 85025; 96365; 96375; 99285; J0360; J0744; J1170; J1885; J2270; J2405; J3490; J7030; J7042; Q9967

== ENCOUNTER 2023-02-23 07:21 | Outpatient (CLI) | payer BC, SELFPAY ==
[2023-02-23] MEDS: iohexol 350 mg/mL 500 mL Btl (per mL) PO (08:05)
[2023-02-23] MEDS: iohexol 350 mg/mL 500 mL Btl (per mL) IV (08:29)
--- NOTE | 2023-02-23 08:30 | CT_ITS ---
WS: [id number] CT ABDOMEN PELVIS TECHNIQUE: Contrast-enhanced CT of the abdomen and pelvis with coronal and sagittal reformatted image s. CLINICAL INFORMATION: K57.92 - Diverticulitis of intestine, part unspecified, w... COMPARISON: CT 01/01/2023 DLP: 460.[address] scans at [facility] use at least one of these dose optimization techniques: automated e xposure control; mA and/or kV adjustment per patient size (includes targeted exams where dose is matc hed to clinical indication); or iterative reconstruction. FINDINGS: Diffuse infiltration of the liver. Normal gallbladder. Normal spleen. Normal GE junction. Lung bases are well aerated. Adrenal glands are normal. Normal renal parenchymal enhancement. No hydronephrosis. Normal pancreatic parenchymal enhancement. Normal caliber abdominal aorta. Celiac and SMA are patent . Portal vein and splenic vein are patent. Previously described diffuse colonic thickening compatible with diverticulitis appears improved. Ther e is a small lobulated diverticular abscess measuring 1.9 x 1.9 x 2.0 cm. A few small locules of asso ciated air. Recommend continued antibiotic treatment and follow-up to resolution. Tiny fat-containing umbilical hernia. Normal caliber abdominal aorta. Celiac and SMA are patent. No o ther suspicious findings. IMPRESSION: 1. Interval development of a small lobulated diverticular abscess measuring 1.9 x 1.9 x 2.0 cm. Phil mmend follow-up to resolution. Recommend repeat CT abdomen pelvis with contrast after additional roun d of antibiotics or if worsening symptoms. 2. Overall diffuse colonic thickening and inflammation has improved and nearly resolved. 3. No other significant changes compared to previous. 4. Diffuse fatty infiltration of the liver with mild hepatomegaly This is a chest notified Bladimir Arnett DO at 02/23/2023 9:23 AM.
== END 2023-02-23 07:22 | disposition home or self-care (01) ==
LOC: RAD 07:25
PROVIDERS: PCP Family Medicine; Visit Provider Family Medicine
DX: K57.92 Diverticulitis of intestine, part unspecified, without perforation or abscess without bleeding (principal); K76.0 Fatty (change of) liver, not elsewhere classified; R16.0 Hepatomegaly, not elsewhere classified
CPT/HCPCS: 74177; Q9967

== ENCOUNTER 2023-08-04 12:01 | Oncology outpatient (recurring) (ONCR) | payer BC, SELFPAY ==
[2023-08-04 12:35] LABS: Basophils # 0.1 10^3/uL (0.0-0.1); Basophils % 0.8 %; Eosinophils # 0.2 10^3/uL (0.0-0.8); Eosinophils % 2.1 %; Lymphocytes # 1.9 10^3/uL (0.8-4.8); Lymphocytes % 24.8 %; Mean Corpuscular HGB Conc 35.5 g/dL (30-55); Mean Corpuscular Hemoglobin 32.2 pg (27-33); Mean Corpuscular Volume 90.7 fl (82-101); Mean Platelet Volume 11.4 fL (7.4-10.4); Monocytes # 0.6 10^3/uL (0.2-0.9); Monocytes % 8.2 %; Neutrophils # 4.97 10^3/uL (1.8-7.7); Neutrophils % 63.8 %; Nucleated Red Blood Cells % 0 %; Platelet Count 231 10^3/cmm (157-399); Red Cell Distribution Width 12.8 % (12.1-15.1); White Blood Count 7.78 10^3/uL (3.29-11.43)
[2023-08-04 12:54] LABS: Alanine Aminotransferase 39 U/L (0-41); Albumin Level 4.4 g/dL (3.5-5.2); Alkaline Phosphatase 101 U/L (40-130); Aspartate Amino Transferase 23 U/L (0-40); Blood Urea Nitrogen 13 mg/dL (6-20); Calcium 9.5 mg/dL (8.5-10.5); Carbon Dioxide 23 mmol/L (22-29); Chloride 103 mmol/L (98-107); Globulin 2.9 g/dL (1.3-4.6); Glomerular Filtration Rate 107.6 mL/min (90-130); Glucose 100 mg/dL (65-115); Osmolality Calculated 286 mOsm/kg (285-295); Sodium 138 mmol/L (136-145); Total Bilirubin 0.9 mg/dL (0.15-1.2); Total Protein 7.3 g/dL (6.6-8.7)
[2023-08-04 13:17] LABS: Lactate Dehydrogenase 173 U/L (135-225)
== END 2023-09-01 23:59 | disposition home or self-care (01) ==
LOC: ONCMED 12:02
PROVIDERS: PCP Family Medicine; Referring Provider Family Medicine; Visit Provider Internal Medicine Medical Oncology
DX: Z51.12 Encounter for antineoplastic immunotherapy (principal); C43.59 Malignant melanoma of other part of trunk; R53.83 Other fatigue
CPT/HCPCS: 36415; 80053; 83615; 85025

== ENCOUNTER 2025-01-23 12:44 | Oncology outpatient (recurring) (ONCR) | payer BC, SELFPAY ==
[2025-01-23 13:48] LABS: Hematocrit 50.6 % (37-53); Hemoglobin 17.80 g/dL (11.27-16.99); Mean Corpuscular HGB Conc 35.2 g/dL (30-55); Mean Corpuscular Hemoglobin 31.7 pg (27-33); Mean Corpuscular Volume 90.0 fl (82-101); Nucleated Red Blood Cells % 0 %; Platelet Count 211 10^3/cmm (157-399); Red Blood Count 5.62 10^6/uL (3.85-5.65); White Blood Count 8.99 10^3/uL (3.29-11.43)
[2025-01-23 14:24] LABS: Alanine Aminotransferase 59 U/L (0-41); Albumin Level 4.8 g/dL (3.5-5.2); Alkaline Phosphatase 87 U/L (40-130); Anion Gap 18.1 (5-19); Aspartate Amino Transferase 26 U/L (0-40); Blood Urea Nitrogen 15 mg/dL (6-20); Calcium 9.9 mg/dL (8.5-10.5); Carbon Dioxide 24 mmol/L (22-29); Chloride 103 mmol/L (98-107); Creatinine Clr Calc Pharmacy 135.9023; Free T4 Free Thyroxine 1.04 ng/dL (0.82-1.77); Globulin 2.7 g/dL (1.3-4.6); Glucose 106 mg/dL (65-115); Osmolality Calculated 293 mOsm/kg (285-295); Potassium 4.1 mmol/L (3.5-5.1); Sodium 141 mmol/L (136-145); Thyroid Stimulating Hormone 0.92 uIU/mL (0.27-4.20); Total Protein 7.5 g/dL (6.6-8.7)
== END 2025-01-31 23:59 | disposition home or self-care (01) ==
PROVIDERS: PCP Family Medicine; Visit Provider Internal Medicine Medical Oncology
DX: C43.59 Malignant melanoma of other part of trunk (principal)
CPT/HCPCS: 36415; 80053; 84439; 84443; 84481; 85025

== ENCOUNTER 2025-01-24 11:59 | Outpatient (CLI) | payer BC, SELFPAY ==
--- NOTE | 2025-01-24 11:45 | CT_ITS ---
WS: [id number] CT CHEST, ABDOMEN, AND PELVIS TECHNIQUE: Contrast-enhanced CT of the chest, abdomen, and pelvis with coronal and sagittal reformatted images. CLINICAL INFORMATION: secondary and unspecified malignant neoplas, of COMPARISON: None. DLP: 1032.[address] scans at [facility] use at least one of these dose optimization techniques: automated exposure control; mA and/or kV adjustment per patient size (includes targeted exams where dose is matched to clinical indication); or iterative reconstruction. CT CHEST: Normal caliber thoracic aorta. No mediastinal or hilar lymphadenopathy. Previously described FDG avid LEFT axillary mass seen on the PET/CT in 2020 has resolved or been resected. No axillary lymphadenopathy today. Small esophageal hiatal hernia. Lungs are well aerated. No suspicious pulmonary parenchymal abnormalities. No evidence of metastatic disease in the chest. Normal thoracic spine. CT ABDOMEN AND PELVIS: Fatty liver. Hepatomegaly. Normal gallbladder. Normal spleen. Normal pancreas. Adrenal glands are normal. Normal renal parenchymal enhancement. No hydronephrosis. Small esophageal hiatal hernia. Normal caliber abdominal aorta. Celiac and SMA are patent. Small fat-containing umbilical hernia. Fat-containing LEFT inguinal hernia. Sigmoid diverticulosis. Scarring with mild narrowing in the sigmoid colon from prior diverticulitis. Previously described abscess has resolved. No adenopathy in the abdomen or pelvis. CT/CT chest abdpel w/*[id number] IMPRESSION: 1. No evidence of metastatic disease in the chest abdomen or pelvis 2. No adenopathy in the chest abdomen or pelvis. 3. Previously described diverticular abscess has resolved. Sigmoid diverticulo sis.
[2025-01-24] MEDS: iohexol 350 mg/mL 500 mL Btl (per mL) PO (13:04)
[2025-01-24] MEDS: iohexol 350 mg/mL 500 mL Btl (per mL) IV (13:05)
== END 2025-01-24 12:00 | disposition home or self-care (01) ==
LOC: RAD 12:01
PROVIDERS: PCP Family Medicine; Visit Provider Internal Medicine Medical Oncology
DX: C77.3 Secondary and unspecified malignant neoplasm of axilla and upper limb lymph nodes (principal); K44.9 Diaphragmatic hernia without obstruction or gangrene; K76.0 Fatty (change of) liver, not elsewhere classified; K42.9 Umbilical hernia without obstruction or gangrene; K40.90 Unilateral inguinal hernia, without obstruction or gangrene, not specified as recurrent; K57.30 Diverticulosis of large intestine without perforation or abscess without bleeding
CPT/HCPCS: 71260; 74177

== ENCOUNTER 2025-02-20 12:52 | Oncology outpatient (recurring) (ONCR) | payer BC, SELFPAY ==
--- NOTE | 2025-02-08 07:15 | MR_ITS ---
WS: [id number] MRI BRAIN WITH AND WITHOUT CONTRAST HISTORY: malignant melanoma of other part of trunk COMPARISON: 12/03/2020 TECHNIQUE: Multiplanar imaging performed through the brain with MultiHance 20 ml's IV. No acute infarcts are seen. Kerr-white matter differentiation is well preserved. Normal hippocampal formations. No atrophy. No susceptibility artifacts or prior lacunar infarcts. Ventricles and extra-axial spaces are normal. Clivus and pituitary gland are normal. Visualized posterior fossa and brainstem are also normal. Postcontrast images are negative for masses or vascular malformations. Dural venous sinuses are normal. Paranasal sinuses: Well aerated with no significant disease. Mastoid air cells: Normal. Calvarium and scalp: Normal. MR/MR head wo/w con [id number] IMPRESSION: 1. No diffusion abnormality or acute infarcts. 2. No enhancing masses or metastatic disease to the brain. 3. No significant atrophy or small vessel disease. 4. Normal hippocampal formations.
[2025-02-08] MEDS: gadobenate dimeglumine 20 mL vial IV (07:46)
== END 2025-03-03 23:59 | disposition home or self-care (01) ==
PROVIDERS: PCP Family Medicine; Visit Provider Internal Medicine Medical Oncology
DX: C43.59 Malignant melanoma of other part of trunk (principal); C77.3 Secondary and unspecified malignant neoplasm of axilla and upper limb lymph nodes
CPT/HCPCS: 70553